=== PATIENT | male | born 1945 | race Caucasian/White ===

== ENCOUNTER 2016-10-30 09:53 | Outpatient (RCR) | payer MEDICARE, OTHER ==
[~2016-10-30 09:53] MED LIST: AMLO5TAB2 PO; ATEN50TA PO; CALC-787 PO; CHLO25TA2 PO; GLYB2.5T4 PO; LISI1TAB10 PO; LISINOPRIL 20 MG; METF-380 PO; MTF500T PO; MULT-963 PO; OMG1KC PO; OXYC-12 PO; PGLT30T PO; SIMV40TA4 PO
== END 2017-01-28 | disposition home or self-care (01) ==
LOC: DSME 09:53
PROVIDERS: ATTEND Internal Medicine
DX: E11.65 Type 2 diabetes mellitus with hyperglycemia (principal)

== ENCOUNTER 2017-07-05 10:44 | Outpatient (CLI) | payer MEDICARE, OTHER ==
[~2017-07-05] VITALS: Ht 195.6 cm; Wt 133.8 kg
== END 2017-07-05 10:47 ==
LOC: PREOP 10:44
PROVIDERS: ATTEND Surgery
DX: Z01.818 Encounter for other preprocedural examination (principal); Z12.11 Encounter for screening for malignant neoplasm of colon; Z86.010 Personal history of colon polyps

== ENCOUNTER 2017-07-06 11:56 | Day surgery (SDC) | payer MEDICARE, OTHER ==
[~2017-07-06] VITALS: Ht 195.6 cm; Wt 133.8 kg
[2017-07-06] MEDS ORDERED: NS IV 500 ML 500 ML IV PRN (12:00)
[2017-07-06] MEDS ORDERED: NS IV 500 ML 500 ML ONE (12:03)
[2017-07-06] MEDS ORDERED: LIDOCAINE JELLY 2% (XYLOCAINE) 5 ML TUBE MM PRN (12:15)
[2017-07-06 12:34] VITALS: BP 144/67
--- NOTE | 2017-07-06 13:03 | Conscious Sedation/ASA ---
Conscious Sedation Pre-Proced Time Reviewed: 12:30 ASA Class: 2 Airway Mallampati Classification: ([place] appropriate class) I. II. III, IV Lungs Heart ASA score ASA 1: a normal healthy patient ASA 2: a patient with a mild systemic disease (mid diabetes, controlled hypertension, obesity ASA 3: a patient with a severe systemic disease that limits activity (angina , COPD, prior Myocardial infarction) ASA 4: a patient with an incapacitating disease that is a constant threat to life (CHF, renal failure) ASA 5: a moribund patient not expected to survive 24 hrs. (ruptured aneurysm) ASA 6: a declared brain patient whose organs are being harvested. For emergent operations, add the letter E after the classification Grade 2 Sedation Plan: Analgesia, Amnesia, Plan communicated to team members, Discussed options with patient/fam, Discussed risks with patient/fam Note The patient is an appropriate candidate to undergo the planned procedure, sedation, and anesthesia. The patient immediately re-assessed prior to indication. DOM GUTIÉRREZ MD Jul 06, 2017 1:03 pm
--- NOTE | 2017-07-06 13:04 | Progress Note-Pre Operative ---
Pre-Operative Progress Note H&P Reviewed The H&P was reviewed, patient examined and no changes noted. Date Seen by Provider: Jul 06, 2017 Time Seen by Provider: 12:30 Date H&P Reviewed: Jul 06, 2017 Time H&P Reviewed: 12:30 Pre-Operative Diagnosis: hx polyps DOM GUTIÉRREZ MD Jul 06, 2017 1:03 pm
[2017-07-06] MEDS ORDERED: MIDAZOLAM 2 MG/2 ML (VERSED) VIAL ONE ×4 (13:11)
[2017-07-06] MEDS ORDERED: LIDOCAINE JELLY 2% (XYLOCAINE) 5 ML TUBE ONE (13:12)
[2017-07-06] MEDS ORDERED: fentaNYL INJECTION 100 MCG/2 ML AMP ONE ×2 (13:12)
[2017-07-06] MEDS ORDERED: ACETAMINOPHEN 325 MG TABLET/CAPLET (TYLENOL) PO PRN (13:15)
[2017-07-06] MEDS ORDERED: ONDANSETRON 4 MG/2 ML (SDV) Z0FRAN IV PRN (13:15)
[2017-07-06] MEDS ORDERED: morphine INJ 10 MG/ML 1ML (SYR OR VIAL) IV PRN (13:15)
[2017-07-06] MEDS ORDERED: HYDROcodone/APAP 5 MG/325 MG (LORTAB) TAB PO PRN (13:15)
[2017-07-06] MEDS: fentaNYL INJECTION 100 MCG/2 ML AMP IVP PRN ×2 (13:26→13:35)
[2017-07-06] MEDS: MIDAZOLAM 2 MG/2 ML (VERSED) VIAL IVP PRN ×3 (13:28→13:40)
--- NOTE | 2017-07-06 13:58 | Progress Note-Post Operative ---
Post-Operative Progess Note Surgeon (s)/Junior Legal Secretary (s) Surgeon DOM GUTIÉRREZ MD Junior Legal Secretary: none Pre-Operative Diagnosis hx polyps Post-Operative Diagnosis mild sigmoid diverticulosis. Procedure & Operative Findings Date of Procedure 07/06/17 Procedure Performed/Findings Colonoscopy. Anesthesia Type CS Estimated Blood Loss Estimated blood loss (mL): minimal Specimens/Packing Specimens Removed none DOM GUTIÉRREZ MD Jul 06, 2017 1:58 pm
--- NOTE | 2017-07-06 13:59 | Discharge Inst-Surgical ---
D/C Lap Instructions-BROCK Follow Up 10 years Activity as tolerated High Fiber Diet 25g or more per day Avoid Alcohol, Caffeine, Spicy [place] and Acid foods. Drink 64 fluid oz or more of fluids per day. Symptoms to Report: Fever over 101 degree F, Nausea/Vomiting If any problems/questions: Contact your physician or go to Emergency Room DOM GUTIÉRREZ MD Jul 06, 2017 1:59 pm
[2017-07-06 14:05] VITALS: BP 114/64
[2017-07-06 14:20] VITALS: BP 141/79
[2017-07-06 14:36] VITALS: BP 141/79
--- NOTE | 2017-07-06 23:43 | OPERATIVE REPORT ---
DATE OF SERVICE: 07/06/2017 ATTENDING PRIMARY CARE PHYSICIAN: Dr. Gibbs. PREOPERATIVE DIAGNOSIS: History of colon polyp. POSTOPERATIVE DIAGNOSIS: Mild sigmoid diverticulosis. PROCEDURE: Colonoscopy. SURGEON: Dr. Gutiérrez. ANESTHESIA: Conscious sedation. ESTIMATED BLOOD LOSS: Minimal. FINDINGS: Mild sigmoid diverticulosis. Remainder of the colon was normal. There were no polyps identified. DISPOSITION: The patient tolerated the procedure well. The patient is a 72-year-old male in need of a followup colonoscopy. He reports that he has had a colonoscopy done before in the past. He does remember having polyps identified. He reports that these were biopsied and found to be benign. He states for the most part he is doing well and does not report any major issues with diarrhea nor constipation as well as no red blood per rectum nor any dark tarry stools. He also does not report any family history of colon cancer. The patient was brought to the endoscopy suite, laid in the left lateral decubitus position. After adequate IV pain and sedating medications and conscious sedation anesthesia, a digital rectal examination was performed. No significant hemorrhoids were identified. Normal sphincter tone was felt and there were no palpable masses. Prostate gland was palpable and appeared normal. The endoscope was then intubated to the anus, then the rectum gently insufflated. The endoscope was then advanced through the valves of Chen and the rectum with no polyps or any neoplasms identified. We then proceeded through the sigmoid colon where mild sigmoid diverticulosis was identified. There were no mucosal inflammatory changes identified to indicate any active diverticulitis. The endoscope was then advanced through the remainder of the descending, transverse, and ascending colon to the cecum. These segments were normal. There were no polyps or any neoplasms identified. The endoscope was then slowly withdrawn while taking a second look and suctioning of residual air with no additional findings. The patient tolerated the procedure well. We will have him continue with medical management with high fiber diet with at least 30 grams of fiber per day as well as at least 64 fluid ounces of water daily to promote soft stools on a daily basis. He does not have a family history of colon cancer and it did does not appear that he has had any significant adenomatous polyps with any villous architecture and from this standpoint, he does not need another colonoscopy for another 10 years or sooner if problems arise. Job ID: [id number] DocumentID: [id number] Dictated Date: 07/06/2017 14:07:25 Rough Planer Tender Date: 07/06/2017 23:43:00 Dictated By: DOM GUTIÉRREZ MD
== END 2017-07-06 14:30 | disposition home or self-care (01) ==
LOC: ENDO 11:56
PROVIDERS: ATTEND Surgery
DX: Z12.11 Encounter for screening for malignant neoplasm of colon (principal); Z86.010 Personal history of colon polyps; K57.90 Diverticulosis of intestine, part unspecified, without perforation or abscess without bleeding; I10 Essential (primary) hypertension; E11.9 Type 2 diabetes mellitus without complications; E78.5 Hyperlipidemia, unspecified; E29.1 Testicular hypofunction; M10.9 Gout, unspecified; F17.220 Nicotine dependence, chewing tobacco, uncomplicated; Z79.82 Long term (current) use of aspirin; Z79.84 Long term (current) use of oral hypoglycemic drugs; Z79.899 Other long term (current) drug therapy

== ENCOUNTER → 2018-08-09 | Outpatient (CLI) | payer MEDICARE, OTHER | LOC: CARD 07:50 | PROVIDERS: ATTEND Internal Medicine Cardiovascular Disease | DX: I49.1 Atrial premature depolarization (principal); E11.9 Type 2 diabetes mellitus without complications; R42 Dizziness and giddiness; I10 Essential (primary) hypertension; E78.2 Mixed hyperlipidemia | CPT/HCPCS: 93225; 93226 ==

== ENCOUNTER → 2018-08-26 | Outpatient (CLI) | payer MEDICARE, OTHER | LOC: CARD 12:36 | PROVIDERS: ATTEND Internal Medicine Cardiovascular Disease | DX: I49.1 Atrial premature depolarization (principal); I10 Essential (primary) hypertension; E78.2 Mixed hyperlipidemia; R42 Dizziness and giddiness; E11.9 Type 2 diabetes mellitus without complications | CPT/HCPCS: 93306 ==

== ENCOUNTER 2018-10-12 19:58 | Outpatient (CLI) | payer MEDICARE, OTHER | END 2018-10-13 06:00 | disposition home or self-care (01) | LOC: SLEEP 19:58 | PROVIDERS: ATTEND Internal Medicine Cardiovascular Disease | DX: G47.33 Obstructive sleep apnea (adult) (pediatric) (principal); I10 Essential (primary) hypertension; I49.9 Cardiac arrhythmia, unspecified | CPT/HCPCS: 95811 ==

== ENCOUNTER → 2019-05-21 | Outpatient (CLI) | payer MEDICARE, OTHER ==
[~2019-05-21] MED LIST changes: +CATHETER FLUSH 10 ML SYR IV PRN
[2019-05-21 09:09] VITALS: BP 149/68
[2019-05-21 09:23] VITALS: BP 207/67
[2019-05-21 09:24] VITALS: BP 171/64
[2019-05-21 09:26] VITALS: BP 163/64
--- NOTE | 2019-05-21 15:42 | STRESS TEST ---
DATE OF SERVICE: 05/21/2019 EXERCISE MYOVIEW STRESS TEST REPORT REFERRING PHYSICIAN: Dr. Gibbs and Brittany Taylor DO Baseline heart rate is 56. Baseline blood pressure 149/68. Baseline EKG is sinus rhythm with no ischemic changes. In summary, the patient was injected with 10.99 mCi of technetium-99 Myoview and the resting images were obtained. Then, the patient started exercising with a baseline heart rate, blood pressure and EKG mentioned above. The patient was able to exercise for a total of 5 minutes 20 seconds on standard Abdon protocol. With peak exercise level, blood pressure was 207/67. During EKG was showing minimal nondiagnostic changes. During recovery, heart rate and blood pressure returned to baseline. EKG returned to baseline. The resting and stress images were reviewed and compared in the short axis, horizontal long axis, and vertical long axis views. Review of the images showed diaphragmatic attenuation with decreased uptake involving the inferior wall and inferoposterior wall with subtle reversibility most probably due to the diaphragmatic attenuation, there is no significant ischemia was noted. SSS 0. TID value 1.01. On the gated images, the left ventricle appeared to be normal size with normal contractility. Calculated ejection fraction 61%. CONCLUSION: 1. The patient was able to exercise for a total of 5 minutes 20 seconds on standard Abdon protocol, achieving 86% of maximum expected heart rate. 2. Hypertensive response to exercise, returned to baseline during recovery with peak blood pressure 207/67. 3. Minimal nondiagnostic EKG changes with exercise, returned to baseline during recovery. 4. Diaphragmatic attenuation with typical male pattern. No significant ischemia or infarction on SPECT images. 5. Normal left ventricular size with normal contractility. Calculated ejection fraction 61%. Job ID: [id number] DocumentID: [id number] Dictated Date: 05/21/2019 15:26:10 Earth Moving Machine Operator Date: 05/21/2019 15:42:02 Dictated By: SANDRA CHEN MD
== END ==
LOC: CARD 07:17
PROVIDERS: ATTEND Physician Assistant
DX: I49.1 Atrial premature depolarization (principal); E11.9 Type 2 diabetes mellitus without complications; I10 Essential (primary) hypertension; E78.2 Mixed hyperlipidemia; Z82.49 Family history of ischemic heart disease and other diseases of the circulatory system
CPT/HCPCS: 78452; 93017

== ENCOUNTER → 2020-04-12 | Outpatient (CLI) | payer MEDICARE, OTHER ==
[~2020-04-12] MED LIST changes: -CATHETER FLUSH 10 ML SYR IV PRN
--- NOTE | 2020-04-12 12:56 | Diagnostic Imaging Report ---
INDICATION: Right hip pain. FINDINGS: Two views of the right hip show no fracture or dislocation. There are small osteophytes at the margins of the articular surfaces. There is some sclerotic change in the inferior aspect of the right sacroiliac joint. IMPRESSION: Chronic right sacroiliitis. Mild degenerative changes of the right hip. No acute abnormalities seen. Dictated by: Dictated on workstation # [id number]
== END ==
LOC: RAD 10:34
PROVIDERS: ATTEND Internal Medicine
DX: M16.11 Unilateral primary osteoarthritis, right hip (principal); M46.1 Sacroiliitis, not elsewhere classified
CPT/HCPCS: 73502

== ENCOUNTER → 2021-02-10 | Outpatient (CLI) | payer MEDICARE, OTHER ==
--- NOTE | 2021-02-10 16:37 | Diagnostic Imaging Report ---
EXAMINATION: Left hip unilateral 2 or 3 views (w/pelvis when done) HISTORY: HIP AND BACK PAIN COMPARISON: None available. FINDINGS: Alignment is normal. No fracture seen. There is mild hip joint osteoarthritis in the left. IMPRESSION: 1. Mild left hip osteoarthritis. Dictated by: Dictated on workstation # [id number]
--- NOTE | 2021-02-10 16:56 | Diagnostic Imaging Report ---
INDICATION: Low back pain AP and lateral views of lumbar spine are obtained. There is grade 1 spondylolisthesis at L4-L5. There is spondylosis deformans with large osteophytes anteriorly throughout the lumbar spine many of which are bridging. The patient has changes of chronic sacroiliitis. There are degenerative changes of the facet joints at L4-L5 and L5-S1. L5-S1 disc spaces narrowed. IMPRESSION: Sacroiliitis, spondylosis deformans. Dictated by: Dictated on workstation # [id number]
== END ==
LOC: RAD 14:07
PROVIDERS: ATTEND Internal Medicine
DX: M16.12 Unilateral primary osteoarthritis, left hip (principal); M47.816 Spondylosis without myelopathy or radiculopathy, lumbar region; M46.1 Sacroiliitis, not elsewhere classified
CPT/HCPCS: 72100; 73502

== ENCOUNTER → 2021-04-27 | Outpatient (CLI) | payer MEDICARE, OTHER | LOC: CARD 13:30 | PROVIDERS: ATTEND Physician Assistant | DX: I11.9 Hypertensive heart disease without heart failure (principal); I35.0 Nonrheumatic aortic (valve) stenosis; I25.10 Atherosclerotic heart disease of native coronary artery without angina pectoris | CPT/HCPCS: 93306 ==

== ENCOUNTER → 2021-12-20 | Outpatient (CLI) | payer MEDICARE, OTHER ==
--- NOTE | 2021-12-20 11:29 | Diagnostic Imaging Report ---
INDICATION: Right elbow pain. COMPARISON: None FINDINGS: 3 radiographic views of the right elbow were obtained. There is no acute fracture or dislocation. Moderate osteoarthritic changes are noted. There are probable multiple calcified intra-articular loose bodies. Otherwise, joint spaces are maintained. No unexpected radiopaque foreign bodies are seen. Partially calcified soft tissue prominence is noted over the posterior margins of the olecranon. IMPRESSION: 1. No acute fracture or dislocation of the right elbow. 2. Moderate osteoarthritic changes and probable multiple intra-articular loose bodies. 3. 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 Dictated by: Dictated on workstation # [id number]
== END ==
LOC: ORTHO 10:01
PROVIDERS: ATTEND Orthopaedic Surgery
DX: M19.021 Primary osteoarthritis, right elbow (principal)
CPT/HCPCS: 73080; G0463; 99203

== ENCOUNTER → 2022-03-08 | Outpatient (CLI) | payer OTHER ==
[~2022-03-08] MED LIST changes: +ASPI-999 PO; +ATOR40TA70 PO; +FAMO20TA3 PO; +HYDR25TA4 PO; +INDO25CA99 PO; +INSU100I14 SQ; +INSU100I29 SQ; +LIRA0.6P3 SQ; +METO50TA15 PO; +OXC5T PO; +TEST200V21 IM
== END ==
LOC: ORTHO 02:45
PROVIDERS: ATTEND Orthopaedic Surgery
DX: Z47.89 Encounter for other orthopedic aftercare (principal); Z98.890 Other specified postprocedural states
CPT/HCPCS: 99213

== ENCOUNTER 2022-03-13 05:30 | Outpatient (CLI) | payer MEDICARE, OTHER ==
[~2022-03-13] VITALS: Ht 195.6 cm; Wt 125.8 kg
[~2022-03-13 05:30] MED LIST changes: -ASPI-999 PO; -ATOR40TA70 PO; -FAMO20TA3 PO; -HYDR25TA4 PO; -INDO25CA99 PO; -INSU100I14 SQ; -INSU100I29 SQ; -LIRA0.6P3 SQ; -METO50TA15 PO; -OXC5T PO; -TEST200V21 IM
[2022-03-15] MEDS ORDERED: METO50TA15 PO (15:26)
[2022-03-15] MEDS ORDERED: LIRA0.6P3 SQ (15:26)
[2022-03-15] MEDS ORDERED: INSU100I29 SQ ×2 (15:26)
[2022-03-15] MEDS ORDERED: TEST200V21 IM (15:26)
[2022-03-15] MEDS ORDERED: FAMO20TA3 PO (15:26)
[2022-03-15] MEDS ORDERED: ATOR40TA70 PO (15:26)
[2022-03-15] MEDS ORDERED: HYDR25TA4 PO (15:26)
[2022-03-15] MEDS ORDERED: INDO25CA99 PO (15:26)
[2022-03-15] MEDS ORDERED: INSU100I14 SQ (15:26)
[2022-03-15] MEDS ORDERED: ASPI-999 PO (15:26)
== END 2022-03-15 15:49 | disposition home or self-care (01) ==
LOC: PREOP 05:30
PROVIDERS: ATTEND Orthopaedic Surgery
DX: Z01.818 Encounter for other preprocedural examination (principal)

== ENCOUNTER 2022-03-20 06:03 | Day surgery (SDC) | payer MEDICARE, OTHER ==
[~2022-03-20] VITALS: Ht 195 cm; Wt 125.8 kg
[~2022-03-20 06:03] MED LIST changes: +ASPI-999 PO; +ATOR40TA70 PO; +FAMO20TA3 PO; +HYDR25TA4 PO; +INDO25CA99 PO; +INSU100I14 SQ; +INSU100I29 SQ; +LIRA0.6P3 SQ; +METO50TA15 PO; +TEST200V21 IM
[2022-03-20 06:40] VITALS: BP 155/76
[2022-03-20] MEDS ORDERED: LACTATED RINGERS 1,000 ML IV PRN (06:45)
[2022-03-20] MEDS ORDERED: MIDAZOLAM 2 MG/2 ML (VERSED) VIAL ONE (06:49)
[2022-03-20] MEDS ORDERED: fentaNYL INJ 100 MCG/2 ML AMP ONE (06:49)
[2022-03-20] MEDS ORDERED: PROPOFOL INJECTION 50 ML IV ONE ×2 (06:49→07:50)
[2022-03-20] MEDS ORDERED: ceFAZolin INJECTION 3,000 MG in NS (IVPB) 100 ML IV NR (07:00)
--- NOTE | 2022-03-20 07:12 | Progress Note-Pre Operative ---
Pre-Operative Progress Note H&P Reviewed The H&P was reviewed, patient examined and no changes noted. Date Seen by Provider: Mar 20, 2022 Time Seen by Provider: 07:05 Date H&P Reviewed: Mar 20, 2022 Time H&P Reviewed: 07:05 Pre-Operative Diagnosis: Right Olecranon Bursitis FARTUN VALDEZ MD Mar 20, 2022 07:12
[2022-03-20] MEDS ORDERED: BUPIVACAINE 0.5% 30 ML (SENSORCAINE) VIAL ONE (07:22)
[2022-03-20] MEDS ORDERED: LIDOCAINE/EPI 2% 1:200,00 (XYLOCAINE) 20 ML VIAL ONE (07:22)
[2022-03-20 08:12] VITALS: BP 122/67
[2022-03-20] MEDS ORDERED: fentaNYL INJ 100 MCG/2 ML AMP IVP ONE (08:15)
[2022-03-20] MEDS ORDERED: ONDANSETRON 4 MG/2 ML (SDV) Z0FRAN IVP PRN (08:15)
--- NOTE | 2022-03-20 08:16 | Anesthesia-General Post-Op ---
MAC Patient Condition Mental Status/LOC: Same as Preop Cardiovascular: Satisfactory Nausea/Vomiting: Absent Respiratory: Satisfactory Pain: Controlled Complications: Absent Post Op Complications Complications None Follow Up Care/Instructions Patient Instructions None needed. Anesthesiology Discharge Order Discharge Order Patient is doing well, no complaints, stable vital signs, no apparent adverse anesthesia problems. No complications reported per nursing. JOHN LEWIS CRNA Mar 20, 2022 08:16
[2022-03-20] MEDS ORDERED: OXC5T PO (08:18)
[2022-03-20 08:19] VITALS: BP 125/65
--- NOTE | 2022-03-20 08:24 | Operative Report - Ortho ---
Operative Report Surgeon (s)/Seat Mender (s) Surgeon FARTUN VALDEZ MD Seat Mender n/a Pre-Operative Diagnosis Right Olecranon Bursitis Post-Operative Diagnosis same Operative Report Date of Procedure: Mar 20, 2022 Name of Procedure Performed: Right Olecranon Bursectomy Description & Findings After obtaining informed consent and marking the patient in the preoperative holding area, the patient did receive intravenous antibiotics and was taken to [facility] operating room. Sedation was administered. Surgical timeout was taken. The right upper extremity was prepped and draped in the usual sterile fashion. Area of incision was injected with local anesthetic with epinephrine. Incision was made and circumferential dissection was carried out around the nodular portion of the bursa. Multiple chalk-like deposits were encountered throughout the bursa. A combination of scissors and scalpel were used to excise the nodular portion of the bursa. This portion was sent for pathology. Ronge[place] was used to debride and remove further bursal tissue with deposits in it. The wound was irrigated with normal saline. Wound was repaired with 3-0 vicryl subcutaneously and 4-0 nylon for the skin. Wound was dressed with xeroform, 4x4s, Kerlix, and Coban. Patient tolerated the procedure well and was stable to the recovery room. Anesthesia Type Sedation plus local Estimated Blood Loss minimal Specimen(s) collected/removed Alexandroy topduglas sent for path FARTUN VALDEZ MD Mar 20, 2022 08:24
[2022-03-20 08:31] VITALS: BP 133/75
[2022-03-20 08:40] VITALS: BP_SYST 135; BP_SYST 136; BP_DIAS 67; BP_DIAS 78
[2022-03-20 09:10] VITALS: BP 133/69
== END 2022-03-20 09:28 | disposition home or self-care (01) ==
LOC: SDC 06:03
PROVIDERS: ATTEND Orthopaedic Surgery
DX: M70.21 Olecranon bursitis, right elbow (principal); E11.9 Type 2 diabetes mellitus without complications; E66.9 Obesity, unspecified; Z68.33 Body mass index [BMI] 33.0-33.9, adult; G47.33 Obstructive sleep apnea (adult) (pediatric); K21.9 Gastro-esophageal reflux disease without esophagitis; Z79.82 Long term (current) use of aspirin; Z79.899 Other long term (current) drug therapy; Z79.84 Long term (current) use of oral hypoglycemic drugs; Z79.4 Long term (current) use of insulin; Z87.891 Personal history of nicotine dependence
CPT/HCPCS: 82947; 87081

== ENCOUNTER → 2022-08-18 | Outpatient (CLI) | payer MEDICARE, OTHER ==
[~2022-08-18] MED LIST changes: +OXC5T PO
== END ==
LOC: CARD 14:08
PROVIDERS: ATTEND Internal Medicine Cardiovascular Disease
DX: I11.9 Hypertensive heart disease without heart failure (principal); I35.1 Nonrheumatic aortic (valve) insufficiency
CPT/HCPCS: 93306

== ENCOUNTER → 2022-09-13 | Outpatient (CLI) | payer MEDICARE, OTHER ==
[~2022-09-13] MED LIST changes: +CATHETER FLUSH 10 ML SYR IVP PRN
[2022-09-13 09:08] VITALS: BP 138/68
--- NOTE | 2022-09-13 16:06 | Cardiology Stress Test Report ---
Stress Test Report Date of Procedure/Referring: Date of Procedure: Sep 13, 2022 PCP Brittany Taylor DO Admitting Physician Admitting Physician: Attending Physician: Vanesa Nielson Baseline Heart Rate: 64 Baseline Blood Pressure: Blood Pressure Systolic: 138 Blood Pressure Diastolic: 68 Vital Signs Date Time Temp Pulse Resp B/P (MAP) Pulse Ox O2 Delivery O2 Flow Rate FiO2 09/13/22 09:08 64 16 138/68 (91) 95 Room Air Baseline Vital Signs Vital Signs Date Time Temp Pulse Resp B/P (MAP) Pulse Ox O2 Delivery O2 Flow Rate FiO2 09/13/22 09:08 64 16 138/68 (91) 95 Room Air Baseline EKG: Baseline EKG: NSR Summary: After explaining the procedure and details to the patient, he signed the consent and was brought to the stress nuclear laboratory. Patient exercised on standard Abdon protocol, EKG, heart rate and blood pressure were monitored continuously, resting and stress doses of radio tracer were injected, imaging was acquired and reviewed in the short axis, horizontal long axis and vertical long axis views Patient was able to exercise for a total of 5.30 minutes on Abdon protocol, METs 6.6 Maximum heart rate 121 Maximum blood pressure 204/59 Stress EKG, Minimal nondiagnostic changes Recovery EKG, Return to baseline TID: 1.04 SSS: 0 SDS: 0 EF: 65 Conclusion: 1. Fair exercise tolerance for a total of 5 minutes and 30 seconds on standard Abdon protocol, 6.6 METS achieving 85% of maximum expected heart rate 2. Baseline right bundle branch block with nondiagnostic EKG changes with exercise return to baseline during recovery 3. No significant ischemia or infarction noted on SPECT images 4. Normal left ventricular size, ejection fraction 65% Copy Copies To 1: BRITTANY TAYLOR BASHAR J MD Sep 13, 2022 16:06
== END ==
LOC: CARD 07:30
PROVIDERS: ATTEND Physician Assistant
DX: I10 Essential (primary) hypertension (principal)
CPT/HCPCS: 78452; 93017; A9502

== ENCOUNTER 2022-11-13 05:57 | Outpatient (CLI) | payer MEDICARE, OTHER ==
[~2022-11-13] VITALS: Ht 195.6 cm; Wt 123.6 kg
[~2022-11-13 05:57] MED LIST changes: -CATHETER FLUSH 10 ML SYR IVP PRN
[2022-11-13] MEDS ORDERED: TRAM50TA3 PO (16:07)
[2022-11-13] MEDS ORDERED: TIRZ5PEN SQ (16:07)
[2022-11-13] MEDS ORDERED: ACHD5005 PO (16:07)
[2022-11-13] MEDS ORDERED: ATOR10TA66 PO (16:07)
== END 2022-11-14 08:28 ==
LOC: PREOP 05:57
PROVIDERS: ATTEND Specialist
DX: Z01.818 Encounter for other preprocedural examination (principal)

== ENCOUNTER 2022-11-17 09:20 | Day surgery (SDC) | payer MEDICARE, OTHER ==
[~2022-11-17] VITALS: Ht 195.6 cm; Wt 123.6 kg
[~2022-11-17 09:20] MED LIST changes: +ACHD5005 PO; +ATOR10TA66 PO; +TIRZ5PEN SQ; +TRAM50TA3 PO
[2022-11-17] MEDS ORDERED: POVIDONE (BETADINE) OPHTH SOLN 5% 30 ML OP ONE (09:45)
[2022-11-17] MEDS ORDERED: MOXIFLOXACIN OPHTH SOLN 5 MG/ML 0.3 ML SYRINGE OP ONE (09:45)
[2022-11-17] MEDS ORDERED: TIMOLOL 0.5% (CATARACTS) 0.3 ML BTL OU PRN (09:45)
[2022-11-17] MEDS: TETRACAINE 0.5% OPHTH SOLN 4 ML BTL (SINGLE DOSE ONLY) OU PRN ×4 (10:02→10:19)
[2022-11-17] MEDS: TROPICAMIDE 1% OPH SOLN (MYDRIACYL) 15 ML BTL OP SCH ×3 (10:08→10:19)
[2022-11-17] MEDS: PHENYLEPHRINE 10% OPHTH (NEO-SYN) 5 ML BTL OU SCH ×3 (10:08→10:19)
[2022-11-17 10:20] VITALS: BP 124/59
[2022-11-17] MEDS ORDERED: MIDAZOLAM 2 MG/2 ML (VERSED) VIAL ONE (10:48)
--- NOTE | 2022-11-17 10:51 | Ophthalmologist Pre-Op Note ---
Pre-Operative Progress Note H&P Reviewed The H&P was reviewed, patient examined and no changes noted. Date H&P Reviewed: Nov 17, 2022 Time H&P Reviewed: 10:51 Pre-Op Dx Cataract, Right Eye FANI CORDOBA MD Nov 17, 2022 10:51
--- NOTE | 2022-11-17 11:18 | Ophthalmology Operative Report ---
Cataract removal/placement IOL PREOPERATIVE DIAGNOSIS: Cataract Right Eye POSTOPERATIVE DIAGNOSIS: Cataract Right Eye PROCEDURE: Cataract removal and placement of posterior chamber implant, right eye SURGEON: Cash Cordoba ANESTHESIA: Topical with sedation COMPLICATIONS: None ESTIMATED BLOOD LOSS: Minimal DESCRIPTION OF PROCEDURE: After proper informed consent was obtained, the patient, a 77 male, was taken to the Operating Room and the right eye was anesthetized with tetracaine. The right eye was then prepped and draped in the usual manner. A wire lid speculum was placed. A paracentesis was made at the left hand position. Preservative free lidocaine was injected into the anterior chamber followed by viscoelastic. A clear corneal incision was made in the temporal position. A capsulorrhexis was preformed and the central nuclear and cortical material were removed. The posterior capsule was polished and Arsen 21.0 AU00T0 IOL was placed into the capsular bag. The residual viscoelastic was aspirated and balanced saline solution was injected into the anterior chamber. Moxifloxacin was injected into the anterior chamber. The wound was checked and found to be water tight. The patient tolerated the procedure well without complications. CASH CORDOBA MD Nov 17, 2022 11:18
[2022-11-17 11:22] VITALS: BP 151/68
--- NOTE | 2022-11-17 12:07 | Anesthesia-General Post-Op ---
MAC Patient Condition Mental Status/LOC: Same as Preop Cardiovascular: Satisfactory Nausea/Vomiting: Absent Respiratory: Satisfactory Pain: Controlled Complications: Absent Post Op Complications Complications None Follow Up Care/Instructions Patient Instructions None needed. Anesthesiology Discharge Order Discharge Order Patient is doing well, no complaints, stable vital signs, no apparent adverse anesthesia problems. No complications reported per nursing. BRENDEN VALENTIN CRNA Nov 17, 2022 12:07
[2022-11-17] MEDS ORDERED: acetaZOLAMIDE ER 500 MG CAP (DIAMOX SEQUELS) PO ONE (12:15)
== END 2022-11-17 11:24 | disposition home or self-care (01) ==
LOC: SDC 09:20
PROVIDERS: ATTEND Specialist
DX: E11.36 Type 2 diabetes mellitus with diabetic cataract (principal); H25.9 Unspecified age-related cataract; Z87.891 Personal history of nicotine dependence; Z79.4 Long term (current) use of insulin; Z79.84 Long term (current) use of oral hypoglycemic drugs
CPT/HCPCS: 66984; V2632

== ENCOUNTER 2022-11-19 11:32 | Emergency (ER) | payer MEDICARE, OTHER ==
[~2022-11-19] VITALS: Ht 195.5 cm; Wt 121.0 kg
[2022-11-19 11:45] VITALS: BP 138/74
--- NOTE | 2022-11-19 12:11 | ED GU-Male ---
General Chief Complaint: - Reproductive Stated Complaint: BLOOD IN URINE Nursing Triage Note: AMB TO ROOM 8 WITH A C/O BLOOD IN HIS URINE SINCE LAST EVENING. STATES IS WORSE THIS MORNING, DENIES PAIN OR DIFFICULTY PASSING URINE. DENIES ALL OTHER SYMPTOMS FOR ALL OTHER BODY SYSTEMS EXCEPT VISION FOR WHICH HE HAD CATERACT SURGERY ON SUNDAY. Source: patient Exam Limitations: no limitations (ILSA ZARAGOZA) History of Present Illness Date Seen by Provider: Nov 19, 2022 Time Seen by Provider: 12:09 Initial Comments Patient is a 77-year-old male who presents the ED for blood in his urine. This started yesterday evening. Noted bright red blood in his urine. Denies passing clots. Patient states he had cataract surgery this past Sunday. Was placed on a medication to take after his surgery. Patient cannot recall the medication. States he has intermittent abdominal pain but nothing acute today. No current pain, vomiting, fever, chills, bodyaches, headache, dizziness or history of similar symptoms. Denies history of bladder or prostate cancer. No history of kidney stones. Patient denies blood thinner. Patient reports frequent urination without dysuria, decreased urine output (ILSA ZARAGOZA) Allergies and Home Medications Allergies Coded Allergies: No Known Drug Allergies (Unverified , 03/15/22) Patient Home Medication List Home Medication List Reviewed: Yes (ILSA ZARAGOZA) Aspirin (Aspirin) 81 Mg Tab.chew, 81 MG PO DAILY, (Reported) Entered as Reported by: RUBEN MARINO on 03/15/22 1526 Atorvastatin Calcium (Atorvastatin Calcium) 10 Mg Tablet, 10 MG PO HS, (Reported) Entered as Reported by: RUBEN MARINO on 11/13/22 1607 Calcium Citrate/Vitamin D3 (Calcium Citrate - Vit D3 Tab) 1 Each Tablet, 1 EACH PO, (Reported) Entered as Reported by: PO DE LA PAZ on 08/07/12 151 Chlorthalidone (Chlorthalidone) 25 Mg Tablet, 25 MG PO DAILY, (Reported) Entered as Reported by: PO DE LA PAZ on 08/07/12 1511 Famotidine (Acid Vegetable Farm Manager (FAMOTIDINE)) 20 Mg Tablet, 20 MG PO HS, (Reported) Entered as Reported by: RUBEN MARINO on 03/15/22 1526 Hydrocodone/Acetaminophen (Hydrocodone-Acetamin 5-325 mg) 5 Mg-325 Mg Tablet, 1 TAB PO UD PRN for PAIN-MODERATE (5-7), (Reported) Entered as Reported by: RUBEN MARINO on 11/13/22 160 Indomethacin (Indomethacin) 25 Mg Capsule, 25 MG PO UD, (Reported) Entered as Reported by: RUBEN MARINO on 03/15/22 152 Insulin Aspart (Novolog Flexpen) 100 Unit/Ml (3 Ml) Solution, 5 UNITS SQ AC, (Reported) Entered as Reported by: RUBEN MARINO on 03/15/22 152 Insulin Detemir (Levemir Flextouch) 100 Unit/Ml (3 Ml) Insuln.pen, 18 UNIT SQ BID, (Reported) Entered as Reported by: RUBEN MARINO on 03/15/22 152 Metformin Hcl (Glucophage) 500 Mg Tab, 1,000 MG PO BID, (Reported) Entered as Reported by: FELA QUINONEZ on 07/27/11 165 Metoprolol Tartrate (Metoprolol Tartrate) 50 Mg Tablet, 50 MG PO BID, (Reported) Entered as Reported by: RUBEN MARINO on 03/15/22 152 Multivitamin (Multi-Vitamin Daily) 1 Each Tablet, 1 EACH PO DAILY, (Reported) Entered as Reported by: PO DE LA PAZ on 08/07/12 151 [place] 3 Polyunsat Fatty Acids (Fish Oil) 1,000 Mg Cap, 1,000 MG PO BID, (Reported) Entered as Reported by: PO DE LA PAZ on 08/07/12 151 Testosterone Cypionate (Testosterone Cypionate) 200 Mg/Ml Vial, 200 MG IM, (Reported) Entered as Reported by: RUBEN MARINO on 03/15/22 152 Tirzepatide (Mounjaro) 5 Mg/0.5 Ml Pen.injctr, 5 MG SQ WEEK, (Reported) Entered as Reported by: RUBEN MARINO on 11/13/22 160 Tramadol HCl (Tramadol HCl) 50 Mg Tablet, 50 MG PO UD, (Reported) Entered as Reported by: RUBEN MARINO on 11/13/22 160 [Lisinopril 20 Mg] , 20 MG DAILY, (Reported) Entered as Reported by: FELA QUINONEZ on 07/30/11 1255 Discontinued Medications Atorvastatin Calcium (Atorvastatin Calcium) 40 Mg Tablet, 40 MG PO UD, (Reported) Discontinued Reason: Prescription changed Entered as Reported by: RUBEN Pallavi JAMILA on 03/15/22 1526 Glyburide (Glyburide) 2.5 Mg Tablet, 2 EACH PO DAILY, (Reported) Discontinued Reason: No Longer Taking Entered as Reported by: ELAINE MARIN on 07/17/11 1301 Hydrochlorothiazide (Hydrochlorothiazide) 25 Mg Tablet, 25 MG PO UD, (Reported) Discontinued Reason: No Longer Taking Entered as Reported by: RUBEN MARINO on 03/15/22 1526 Insulin Detemir (Levemir Flextouch) 100 Unit/Ml (3 Ml) Insuln.pen, 15 UNIT SQ D AILY, (Reported) Discontinued Reason: No Longer Taking Entered as Reported by: RUBEN MARINO on 03/15/22 1526 Liraglutide (Victoza 3-Liang) 0.6 Mg/0.1 Ml (18 Mg/3 Ml) Pen.injctr, 1.2 MG SQ DAILY, (Reported) Discontinued Reason: No Longer Taking Entered as Reported by: RUBEN MARINO on 03/15/22 1526 Oxycodone Hcl (Oxyir Tablet) 5 Mg Tab, 5 MG PO Q6H PRN for PAIN-SEVERE (8-10) Discontinued Reason: No Longer Taking Prescribed by: FARTUN VALDEZ MD on 03/20/22 0819 Pioglitazone Hcl (Actos) 30 Mg Tab, 15 MG PO DAILY, (Reported) Discontinued Reason: No Longer Taking Entered as Reported by: ELAINE MARIN on 07/17/11 1301 Simvastatin (Simvastatin) 40 Mg Tablet, 40 MG PO DAILY, (Reported) Discontinued Reason: No Longer Taking Entered as Reported by: ELAINE MARIN on 07/17/11 1301 Review of Systems Review of Systems Constitutional: No chills, No diaphoresis EENTM: No ear pain, No blurred vision, No double vision Respiratory: No cough, No dyspnea on exertion Cardiovascular: No chest pain Gastrointestinal: abdominal pain; No diarrhea, No nausea Genitourinary: denies burning, denies discharge Musculoskeletal: No back pain, No joint pain Skin: No change in color, No change in hair/nails (ILSA ZARAGOZA) All Other Systemes Reviewed Negative Unless Noted: Yes (ILSA ZARAGOZA) Past Vtojzya-Udoixw-Qpwjvw Hx Patient Social History Tobacco Use?: No Use of E-Cig and/or Vaping dev: No Substance use?: No Alcohol Use?: No (ILSA ZARAGOZA) Immunizations Up To Date Influenza Vaccine Up-to-Date: Yes; Up-to-Date First/Initial COVID19 Vaccinat: 10/28/20 Second COVID19 Vaccination [place]: 11/25/20 Third COVID19 Vaccination Date: 07/29/21 (ILSA ZARAGOZA) Seasonal Allergies Seasonal Allergies: Yes (ILSA ZARAGOZA) Past Medical History Surgeries: Yes (BILAT KNEE REPLACEMENT, RIGHT HIP REPLACMENT) Appendectomy, Vasectomy Respiratory: Yes Sleep Apnea Currently Using CPAP: Yes Currently Using BIPAP: No Cardiac: Yes Heart Murmur, High Cholesterol, Hypertension Neurological: No Reproductive Disorders: No Sexually Transmitted Disease: No HIV/AIDS: No Genitourinary: No Gastrointestinal: Yes Gastroesophageal Reflux, Polyps Musculoskeletal: Yes Arthritis, Gout Endocrine: Yes Diabetes, Insulin dep HEENT: No Loss of Vision: Bilateral Hearing Impairment: Denies Cancer: No Psychosocial: No Integumentary: No Blood Disorders: No Adverse Reaction/Blood Tranf: No (ILSA ZARAGOZA) Physical Exam Vital Signs Vital Signs - First Documented 11/19/22 11:45 Temp 36.8 Pulse 66 Resp 16 B/P (MAP) 138/74 (95) Pulse Ox 97 O2 Delivery Room Air (NILDA PALENCIA MD) Vital Signs Capillary Refill : Less Than 3 Seconds (ILSA ZARAGOZA) Height, Weight, BMI Height: 6'5.00" Weight: 295lbs. 0.0oz. 133.436236dt; 31.00 BMI Method: General Appearance: WD/WN, no apparent distress HEENT: PERRL/EOMI, normal ENT inspection, TMs normal, pharynx normal Neck: non-tender, full range of motion, supple, normal inspection Cardiovascular: regular rate, rhythm, no edema, no gallop, no JVD Respiratory: chest non-tender, lungs clear, normal breath sounds, no respiratory distress, no accessory muscle use Gastrointestinal: normal bowel sounds, non tender, soft, no organomegaly Back: normal inspection, no CVA tenderness, no vertebral tenderness Extremities: normal range of motion, non-tender, normal inspection, no pedal edema Neurologic/Psychiatric: stem dryer maintainer II-XII nml as tested, no motor/sensory deficits, alert, normal mood/affect Skin: normal color, warm/dry (ILSA ZARAGOZA) Progress/Results/Core Measures Suspected Sepsis SIRS Temperature: Pulse: 66 Respiratory Rate: 16 Laboratory Tests 11/19/22 12:18: White Blood Count 8.7 Blood Pressure 138 /74 Mean: 95 Laboratory Tests 11/19/22 12:18: Creatinine 1.34H, Platelet Count 166, Total Bilirubin 0.6 (ILSA ZARAGOZA) Results/Orders Lab Results Laboratory Tests Test 11/19/22 11:50 11/19/22 12:18 Range/Units Urine Color RED H Urine Clarity CLEAR Urine pH 7.0 5-9 Urine Specific [place] 1.020 1.016-1.022 Urine Protein 2+ H NEGATIVE Urine Glucose (UA) TRACE H NEGATIVE Urine Ketones NEGATIVE NEGATIVE Urine Nitrite NEGATIVE NEGATIVE Urine Bilirubin NEGATIVE NEGATIVE Urine Urobilinogen 0.2 < = 1.0 MG/DL Urine Leukocyte Esterase NEGATIVE NEGATIVE Urine RBC (Auto) 3+ H NEGATIVE Urine RBC TNTC H /HPF Urine WBC NONE /HPF Urine Squamous Epithelial Cells NONE /HPF Urine Crystals NONE /LPF Urine Bacteria NEGATIVE /HPF Urine Casts NONE /LPF Urine Mucus NEGATIVE /LPF Urine Culture Indicated NO White Blood Count 8.7 4.3-11.0 10^3/uL Red Blood Count 5.13 4.30-5.52 10^6/uL Hemoglobin 15.0 13.3-17.7 g/dL Hematocrit 44 40-54 % Mean Corpuscular Volume 86 80-99 fL Mean Corpuscular Hemoglobin 29 25-34 pg Mean Corpuscular Hemoglobin Concent 34 32-36 g/dL Red Cell Distribution Width 14.4 10.0-14.5 % Platelet Count 166 130-400 10^3/uL Mean Platelet Volume 9.3 9.0-12.2 fL Immature Granulocyte % (Auto) 1 % Neutrophils (%) (Auto) 64 42-75 % Lymphocytes (%) (Auto) 24 12-44 % Monocytes (%) (Auto) 8 0-12 % Eosinophils (%) (Auto) 3 0-10 % Basophils (%) (Auto) 1 0-10 % Neutrophils # (Auto) 5.6 1.8-7.8 10^3/uL Lymphocytes # (Auto) 2.1 1.0-4.0 10^3/uL Monocytes # (Auto) 0.7 0.0-1.0 10^3/uL Eosinophils # (Auto) 0.2 0.0-0.3 10^3/uL Basophils # (Auto) 0.1 0.0-0.1 10^3/uL Immature Granulocyte # (Auto) 0.0 0.0-0.1 10^3/uL Sodium Level 136 135-145 MMOL/L Potassium Level 4.2 3.6-5.0 MMOL/L Chloride Level 105 98-107 MMOL/L Carbon Dioxide Level 16 L 21-32 MMOL/L Anion Gap 15 H 5-14 MMOL/L Blood Urea Nitrogen 20 H 7-18 MG/DL Creatinine 1.34 H 0.60-1.30 MG/DL Estimat Glomerular Filtration Rate 54 BUN/Creatinine Ratio 15 Glucose Level 255 H 70-105 MG/DL Calcium Level 9.9 8.5-10.1 MG/DL Corrected Calcium 9.8 8.5-10.1 MG/DL Total Bilirubin 0.6 0.1-1.0 MG/DL Aspartate Amino Transf (AST/SGOT) 16 5-34 U/L Alanine Aminotransferase (ALT/SGPT) 20 0-55 U/L Alkaline Phosphatase 59 40-136 U/L Total Protein 7.0 6.4-8.2 GM/DL Albumin 4.1 3.2-4.5 GM/DL (NILDA PALENCIA MD) Vital Signs/I&O 11/19/22 11:45 Temp 36.8 Pulse 66 Resp 16 B/P (MAP) 138/74 (95) Pulse Ox 97 O2 Delivery Room Air (NILDA PALENCIA MD) Vital Signs/I&O Capillary Refill : Less Than 3 Seconds (ILSA ZARAGOZA) Blood Pressure Mean: 95 Departure Communication (PCP) Patient with painless hematuria. He states he has had some lower abdominal discomfort prior but none today. Currently asymptomatic. Lab work showed normal hemoglobin and white blood count. Creatinine 1.34. GFR 54. BUN of 20. No recent comparison. Patient reports some increased urination but denies weakened stream, decreased urine output. Urinalysis was negative for infection but did note hematuria as, glucose and protein suggesting kidney disease. He is diabetic. CT abdomen and pelvis without contrast shows nonobstructing 3 mm stone left kidney. Patient is currently pain-free. No evidence of obstructing stone. Patient will be discharged with urology follow-up. Did discuss patient with Dr. Lozano urologist at [facility]. Recommends follow-up in the office this week for further evaluation of the hematuria. Provided number and discharge instructions. Continue with hydration. Return precaution were discussed with patient (ILSA ZARAGOZA) Impression Primary Impression: Hematuria Additional Impression: Nephrolithiasis Disposition: HOME, SELF-CARE Condition: Stable Departure-Patient Inst. Decision time for Depature: 14:29 (ILSA ZARAGOZA) Referrals: CLIVE MUÑOZ DO (PCP/Family) Primary Care Physician Patient Instructions: Kidney Stone, Adult ED Add. Discharge Instructions: Recommend continue staying hydrated. Recommend following up with Dr. Dante reed urologist at [facility]. Schedule appointment tomorrow at [phone] If worsening hematuria, passing of large clots or pain to return back to ED. All discharge instructions reviewed with patient and/or family. Voiced understanding. ATTENDING PHYSICIAN NOTE: I was physically present as attending physician in the emergency department during the care of this patient, but I was not directly involved in the decision making or delivery of care for this patient. (NILDA PALENCIA MD) ILSA ZARAGOZA Nov 19, 2022 12:11 NILDA PALENCIA MD Nov 19, 2022 20:50
[2022-11-19 12:13] LABS: BILIRUBIN,URINE NEGATIVE (NEGATIVE); CLARITY,URINE CLEAR; COLOR,URINE RED; GLUCOSE, URINE (UA) TRACE (NEGATIVE); KETONES,URINE NEGATIVE (NEGATIVE); LEUKOCYTE ESTERASE ,URINE NEGATIVE (NEGATIVE); NITRITE,URINE NEGATIVE (NEGATIVE); PROTEIN,URINE 2+ (NEGATIVE)
[2022-11-19 12:21] LABS: BACTERIA,URINE NEGATIVE /HPF; RBC,URINE TNTC /HPF
[2022-11-19 12:28] LABS: BASOPHILS # (AUTO) 0.1 10^3/uL (0.0-0.1); BASOPHILS % (AUTO) 1 % (0-10); EOSINOPHILS # (AUTO) 0.2 10^3/uL (0.0-0.3); EOSINOPHILS % (AUTO) 3 % (0-10); HEMATOCRIT 44 % (40-54); LYMPHOCYTES # (AUTO) 2.1 10^3/uL (1.0-4.0); LYMPHOCYTES % (AUTO) 24 % (12-44); MEAN CORPUSCULAR HEMOGLOBIN 29 pg (25-34); MEAN CORPUSCULAR HGB CONC 34 g/dL (32-36); MEAN CORPUSCULAR VOLUME 86 fL (80-99); MEAN PLATELET VOLUME 9.3 fL (9.0-12.2); MONOCYTES # (AUTO) 0.7 10^3/uL (0.0-1.0); MONOCYTES % (AUTO) 8 % (0-12); NEUTROPHILS # (AUTO) 5.6 10^3/uL (1.8-7.8); NEUTROPHILS % (AUTO) 64 % (42-75); PLATELET COUNT 166 10^3/uL (130-400); WHITE BLOOD COUNT 8.7 10^3/uL (4.3-11.0)
[2022-11-19 12:37] LABS: ALBUMIN 4.1 GM/DL (3.2-4.5); POTASSIUM 4.2 MMOL/L (3.6-5.0)
[2022-11-19 12:38] LABS: CALCIUM 9.9 MG/DL (8.5-10.1)
[2022-11-19 12:41] LABS: BILIRUBIN,TOTAL 0.6 MG/DL (0.1-1.0)
[2022-11-19 12:43] LABS: CREATININE SERUM 1.34 MG/DL (0.60-1.30)
--- NOTE | 2022-11-19 14:15 | Diagnostic Imaging Report ---
CT ABDOMEN/PELVIS WO TECHNIQUE: Unenhanced CT imaging of the abdomen and pelvis was performed. 2-D reformats are created and submitted for interpretation. Automatic exposure controls were utilized to optimize patient dose. INDICATION: Hematuria COMPARISON: None available. FINDINGS: Lower chest: The lung bases are clear. No pericardial or pleural effusion. Peritoneum: No free intraperitoneal air or fluid. Liver and biliary system: Unenhanced liver is normal. The gallbladder is normal. No biliary duct dilation. Spleen and Pancreas: Spleen is normal. Unenhanced pancreas is grossly normal. Adrenals: Normal. tract: 3 mm nonobstructing stone in the lower pole of the left kidney. No ureteral stones or obstructive uropathy. Urinary bladder is moderately distended. Prostate is not enlarged. GI tract: Stomach is filled with fluid and food debris. No bowel obstruction. No pericolonic inflammatory changes. Appendectomy. Vasculature and Lymph nodes: Normal caliber abdominal aorta has moderate calcifications. No abdominal or pelvic lymphadenopathy. Musculoskeletal: Right total hip arthroplasties without complication. Multilevel degenerative disc disease in the lumbar spine. IMPRESSION: 1. Nonobstructing 3 mm left renal stone. 2. No ureteral stones or obstructive uropathy. Dictated by: Dictated on workstation # [id number]
== END 2022-11-19 14:46 | disposition home or self-care (01) ==
LOC: EDUNIT# 11:32 → ER 11:34
DX: N20.0 Calculus of kidney (principal); E11.9 Type 2 diabetes mellitus without complications; Z79.4 Long term (current) use of insulin
CPT/HCPCS: 36415; 74176; 80053; 81000; 85025

== ENCOUNTER 2022-11-28 05:32 | Outpatient (CLI) | payer MEDICARE, OTHER | END 2022-11-29 07:50 | disposition home or self-care (01) | LOC: PREOP 05:32 | PROVIDERS: ATTEND Specialist | DX: Z01.818 Encounter for other preprocedural examination (principal) ==

== ENCOUNTER 2022-12-01 09:06 | Day surgery (SDC) | payer MEDICARE, OTHER ==
[~2022-12-01] VITALS: Ht 195.6 cm; Wt 121.0 kg
[2022-12-01 09:05] VITALS: BP 151/80
[2022-12-01] MEDS: TETRACAINE 0.5% OPHTH SOLN 4 ML BTL (SINGLE DOSE ONLY) OU PRN ×4 (09:24→09:40)
[2022-12-01] MEDS: TROPICAMIDE 1% OPH SOLN (MYDRIACYL) 15 ML BTL OP SCH ×3 (09:27→09:40)
[2022-12-01] MEDS: PHENYLEPHRINE 10% OPHTH (NEO-SYN) 5 ML BTL OU SCH ×3 (09:27→09:40)
[2022-12-01] MEDS ORDERED: MOXIFLOXACIN OPHTH SOLN 5 MG/ML 0.3 ML SYRINGE OP ONE (09:30)
[2022-12-01] MEDS ORDERED: POVIDONE (BETADINE) OPHTH SOLN 5% 30 ML OP ONE (09:30)
[2022-12-01] MEDS ORDERED: TIMOLOL 0.5% (CATARACTS) 0.3 ML BTL OU PRN (09:30)
--- NOTE | 2022-12-01 09:33 | Ophthalmologist Pre-Op Note ---
Pre-Operative Progress Note H&P Reviewed The H&P was reviewed, patient examined and no changes noted. Date H&P Reviewed: Dec 01, 2022 Time H&P Reviewed: 09:33 Pre-Op Dx Cataract, Left Eye FANI CORDOBA MD Dec 01, 2022 09:33
[2022-12-01] MEDS ORDERED: MIDAZOLAM 2 MG/2 ML (VERSED) VIAL ONE (10:04)
--- NOTE | 2022-12-01 10:28 | Ophthalmology Operative Report ---
Cataract removal/placement IOL PREOPERATIVE DIAGNOSIS: Cataract Left Eye POSTOPERATIVE DIAGNOSIS: Cataract Left Eye PROCEDURE: Cataract removal and placement of posterior chamber implant, left eye SURGEON: Cash Cordoba ANESTHESIA: Topical with sedation COMPLICATIONS: None ESTIMATED BLOOD LOSS: Minimal DESCRIPTION OF PROCEDURE: After proper informed consent was obtained, the patient, a 77 male, was taken to the Operating Room and the left eye was anesthetized with tetracaine. The left eye was then prepped and draped in the usual manner. A wire lid speculum was placed. A paracentesis was made at the left hand position. Preservative free lidocaine was injected into the anterior chamber followed by viscoelastic. A clear corneal incision was made in the temporal position. A capsulorrhexis was preformed and the central nuclear and cortical material were removed. The posterior capsule was polished and an Arsen 21.0 [id number] was placed into the capsular bag. The residual viscoelastic was aspirated and balanced saline solution was injected into the anterior chamber. Moxifloxacin was injected into the anterior chamber. The wound was checked and found to be water tight. The patient tolerated the procedure well without complications. CASH CORDOBA MD Dec 01, 2022 10:28
[2022-12-01 10:33] VITALS: BP 162/77
--- NOTE | 2022-12-01 11:51 | Anesthesia-General Post-Op ---
MAC Patient Condition Mental Status/LOC: Same as Preop Cardiovascular: Satisfactory Nausea/Vomiting: Absent Respiratory: Satisfactory Pain: Controlled Complications: Absent Post Op Complications Complications None Follow Up Care/Instructions Patient Instructions None needed. Anesthesiology Discharge Order Discharge Order Patient is doing well, no complaints, stable vital signs, no apparent adverse anesthesia problems. No complications reported per nursing. BRENDEN VALENTIN CRNA Dec 01, 2022 11:51
== END 2022-12-01 10:37 | disposition home or self-care (01) ==
LOC: SDC 09:06
PROVIDERS: ATTEND Specialist
DX: H25.9 Unspecified age-related cataract (principal); E66.9 Obesity, unspecified; Z68.31 Body mass index [BMI] 31.0-31.9, adult; Z87.891 Personal history of nicotine dependence
CPT/HCPCS: 66984; V2632

== ENCOUNTER 2022-12-27 19:09 | Inpatient (IN) | payer MEDICARE, OTHER ==
[~2022-12-27] VITALS: Ht 195.5 cm; Wt 121.3 kg
[~2022-12-27 19:09] MED LIST changes: -INSU100I29 SQ; +INSU100I30 SQ
--- NOTE | 2022-12-27 19:28 | ED GU-Male ---
General Chief Complaint: - Reproductive Stated Complaint: UNABLE TO URINATE Source: patient Exam Limitations: no limitations History of Present Illness Date Seen by Provider: Dec 27, 2022 Time Seen by Provider: 19:21 Initial Comments Patient is a 77-year-old male with a history of enlarged prostate, kidney stones who presents the ED for decreased urine output, pain with urination. Patient states he started having symptoms this Sunday with difficulty urinating, weakened stream and some mild suprapubic pain and discomfort. This evening right before arrival states he had to urinate and produced a small amount of urine with weakened stream. Patient reports suprapubic discomfort this evening. Denies of any specific sharp stabbing pain or radiating. Patient states he is was seen by urology last week at [facility] with a cystoscopy performed noted a large prostate. Currently on medication which she cannot recall. Patient states he was placed on antibiotic and something to help him urinating after being evaluated at [facility] this past Sunday. Denies fever, chills, chest pain, shortness of breath, back pain, headache, dizziness, nausea, vomiting, diarrhea Allergies and Home Medications Allergies Coded Allergies: No Known Drug Allergies (Unverified , 03/15/22) Patient Home Medication List Home Medication List Reviewed: Yes Aspirin (Aspirin) 81 Mg Tab.chew, 81 MG PO DAILY, (Reported) Entered as Reported by: RUBEN MARINO on 03/15/22 152 Atorvastatin Calcium (Atorvastatin Calcium) 10 Mg Tablet, 10 MG PO HS, (Reported) Entered as Reported by: RUBEN MARINO on 11/13/22 1607 Calcium Citrate/Vitamin D3 (Calcium Citrate - Vit D3 Tab) 1 Each Tablet, 1 EACH PO, (Reported) Entered as Reported by: PO DE LA PAZ on 08/07/12 151 Chlorthalidone (Chlorthalidone) 25 Mg Tablet, 25 MG PO DAILY, (Reported) Entered as Reported by: PO DE LA PAZ on 08/07/12 151 Famotidine (Acid Live In Caregiver (FAMOTIDINE)) 20 Mg Tablet, 20 MG PO HS, (Reported) Entered as Reported by: RUBEN MARINO on 03/15/22 152 Hydrocodone/Acetaminophen (Hydrocodone-Acetamin 5-325 mg) 5 Mg-325 Mg Tablet, 1 TAB PO UD PRN for PAIN-MODERATE (5-7), (Reported) Entered as Reported by: RUBEN MARINO on 11/13/22 160 Indomethacin (Indomethacin) 25 Mg Capsule, 25 MG PO UD, (Reported) Entered as Reported by: RUBEN MARINO on 03/15/22 152 Insulin Aspart (Novolog Flexpen) 100 Unit/Ml (3 Ml) Solution, 5 UNITS SQ AC, (Reported) Entered as Reported by: RUBEN MARINO on 03/15/22 152 Insulin Detemir (Levemir Flextouch) 100 Unit/Ml (3 Ml) Insuln.pen, 18 UNIT SQ BID, (Reported) Entered as Reported by: RUBEN MARINO on 03/15/22 152 Metformin Hcl (Glucophage) 500 Mg Tab, 1,000 MG PO BID, (Reported) Entered as Reported by: FELA QUINONEZ on 07/27/11 1659 Metoprolol Tartrate (Metoprolol Tartrate) 50 Mg Tablet, 50 MG PO BID, (Reported) Entered as Reported by: RUBEN MARINO on 03/15/22 152 Multivitamin (Multi-Vitamin Daily) 1 Each Tablet, 1 EACH PO DAILY, (Reported) Entered as Reported by: PO DE LA PAZ on 08/07/12 1511 [place] 3 Polyunsat Fatty Acids (Fish Oil) 1,000 Mg Cap, 1,000 MG PO BID, (Reported) Entered as Reported by: PO DE LA PAZ on 08/07/12 151 Testosterone Cypionate (Testosterone Cypionate) 200 Mg/Ml Vial, 200 MG IM, (Reported) Entered as Reported by: RUBEN MARINO on 03/15/22 152 Tirzepatide (Mounjaro) 5 Mg/0.5 Ml Pen.injctr, 5 MG SQ WEEK, (Reported) Entered as Reported by: RUBEN MARINO on 11/13/22 160 Tramadol HCl (Tramadol HCl) 50 Mg Tablet, 50 MG PO UD, (Reported) Entered as Reported by: RUBEN MARINO on 11/13/22 160 [Lisinopril 20 Mg] , 20 MG DAILY, (Reported) Entered as Reported by: FELA QUINONEZ on 07/30/11 1255 Review of Systems Review of Systems Constitutional: No chills, No diaphoresis, No malaise, No weakness EENTM: No ear pain, No blurred vision, No double vision Respiratory: No cough, No dyspnea on exertion, No short of breath Cardiovascular: No chest pain, No edema Gastrointestinal: abdominal pain; No diarrhea, No nausea, No vomiting Genitourinary: denies burning, denies discharge; frequency, pain, urgency Musculoskeletal: No back pain, No joint pain Skin: No change in color, No change in hair/nails All Other Systemes Reviewed Negative Unless Noted: Yes Past Wwtrzmf-Wqccyr-Iyjrny Hx Patient Social History Tobacco Use?: No Substance use?: No Alcohol Use?: No Immunizations Up To Date First/Initial COVID19 Vaccinat: 10/28/20 Second COVID19 Vaccination [place]: 11/25/20 Third COVID19 Vaccination Date: 07/29/21 Seasonal Allergies Seasonal Allergies: Yes Past Medical History Surgeries: Yes (BILAT KNEE REPLACEMENT, RIGHT HIP REPLACMENT) Appendectomy, Vasectomy Respiratory: Yes Sleep Apnea Currently Using CPAP: Yes Currently Using BIPAP: No Cardiac: Yes Heart Murmur, High Cholesterol, Hypertension Neurological: No Reproductive Disorders: No Sexually Transmitted Disease: No HIV/AIDS: No Genitourinary: No Gastrointestinal: Yes Gastroesophageal Reflux, Polyps Musculoskeletal: Yes Arthritis, Gout Endocrine: Yes Diabetes, Insulin dep HEENT: No Loss of Vision: Bilateral Hearing Impairment: Denies Cancer: No Psychosocial: No Integumentary: No Blood Disorders: No Adverse Reaction/Blood Tranf: No Physical Exam Vital Signs Vital Signs - First Documented 12/27/22 19:13 Temp 38.5 Pulse 102 B/P (MAP) 187/88 (121) Pulse Ox 94 O2 Delivery Room Air Capillary Refill : Height, Weight, BMI Height: 6'5.00" Weight: 295lbs. 0.0oz. 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, no motor/sensory deficits, alert, normal mood/affect, oriented x 3 Skin: normal color, warm/dry Focused Exam Lactate Level 12/27/22 19:35: Lactic Acid Level 1.63 Lactic Acid Level Laboratory Tests Test 12/27/22 19:35 Lactic Acid Level 1.63 MMOL/L (0.50-2.00) Progress/Results/Core Measures Suspected Sepsis SIRS Temperature: Pulse: Respiratory Rate: Laboratory Tests 12/27/22 19:35: White Blood Count 8.8 Blood Pressure / Mean: 12/27/22 19:35: Lactic Acid Level 1.63 Laboratory Tests 12/27/22 19:35: Creatinine 1.99H, Platelet Count 154, Total Bilirubin 0.8 Results/Orders Lab Results Laboratory Tests Test 12/27/22 19:25 12/27/22 19:35 Range/Units Urine Color YELLOW Urine Clarity CLOUDY Urine pH 5.5 5-9 Urine Specific [place] 1.015 L 1.016-1.022 Urine Protein 1+ H NEGATIVE Urine Glucose (UA) 2+ H NEGATIVE Urine Ketones NEGATIVE NEGATIVE Urine Nitrite POSITIVE H NEGATIVE Urine Bilirubin NEGATIVE NEGATIVE Urine Urobilinogen 0.2 < = 1.0 MG/DL Urine Leukocyte Esterase 2+ H NEGATIVE Urine RBC (Auto) 3+ H NEGATIVE Urine RBC RARE /HPF Urine WBC TNTC H /HPF Urine Squamous Epithelial Cells NONE /HPF Urine Crystals NONE /LPF Urine Bacteria LARGE H /HPF Urine Casts NONE /LPF Urine Mucus NEGATIVE /LPF Urine Culture Indicated YES White Blood Count 8.8 4.3-11.0 10^3/uL Red Blood Count 4.62 4.30-5.52 10^6/uL Hemoglobin 13.5 13.3-17.7 g/dL Hematocrit 40 40-54 % Mean Corpuscular Volume 87 80-99 fL Mean Corpuscular Hemoglobin 29 25-34 pg Mean Corpuscular Hemoglobin Concent 34 32-36 g/dL Red Cell Distribution Width 14.3 10.0-14.5 % Platelet Count 154 130-400 10^3/uL Mean Platelet Volume 9.2 9.0-12.2 fL Immature Granulocyte % (Auto) 1 % Neutrophils (%) (Auto) 77 H 42-75 % Lymphocytes (%) (Auto) 9 L 12-44 % Monocytes (%) (Auto) 12 0-12 % Eosinophils (%) (Auto) 1 0-10 % Basophils (%) (Auto) 1 0-10 % Neutrophils # (Auto) 6.7 1.8-7.8 10^3/uL Lymphocytes # (Auto) 0.8 L 1.0-4.0 10^3/uL Monocytes # (Auto) 1.1 H 0.0-1.0 10^3/uL Eosinophils # (Auto) 0.1 0.0-0.3 10^3/uL Basophils # (Auto) 0.1 0.0-0.1 10^3/uL Immature Granulocyte # (Auto) 0.1 0.0-0.1 10^3/uL Sodium Level 134 L 135-145 MMOL/L Potassium Level 4.2 3.6-5.0 MMOL/L Chloride Level 98 98-107 MMOL/L Carbon Dioxide Level 23 21-32 MMOL/L Anion Gap 13 5-14 MMOL/L Blood Urea Nitrogen 48 H 7-18 MG/DL Creatinine 1.99 H 0.60-1.30 MG/DL Estimat Glomerular Filtration Rate 34 BUN/Creatinine Ratio 24 Glucose Level 316 H 70-105 MG/DL Lactic Acid Level 1.63 0.50-2.00 MMOL/L Calcium Level 10.3 H 8.5-10.1 MG/DL Corrected Calcium 10.3 H 8.5-10.1 MG/DL Total Bilirubin 0.8 0.1-1.0 MG/DL Aspartate Amino Transf (AST/SGOT) 25 5-34 U/L Alanine Aminotransferase (ALT/SGPT) 23 0-55 U/L Alkaline Phosphatase 73 40-136 U/L C-Reactive Protein High Sensitivity 7.84 H 0.00-0.50 MG/DL Total Protein 7.1 6.4-8.2 GM/DL Albumin 4.0 3.2-4.5 GM/DL My Orders Orders - ILSA ZARAGOZA Bladder Scan (12/27/22 19:14) Ua Culture If Indicated (12/27/22 19:14) Cbc With Automated Diff (12/27/22 19:19) Comprehensive Metabolic Panel (12/27/22 19:19) Catheter(Urinary) Insert & Ass 03,15 (12/27/22 19:19) Lidocaine 2% (Urojet) (Xylocaine Urojet) (12/27/22 19:30) Hs C Reactive Protein (12/27/22 19:30) Blood Culture (12/27/22 19:31) Lactic Acid Analyzer (12/27/22 19:31) Ns Iv 1000 Ml (Sodium Chloride 0.9%) (12/27/22 19:31) Acetaminophen Tablet (Tylenol Tablet) (12/27/22 19:45) Blood Culture (12/27/22 19:45) Urine Culture (12/27/22 19:25) Ceftriaxone 1 Gm Pre-Mix (Rocephin 1 Gm (12/27/22 19:50) Ed Admission (Communication) (12/27/22 20:41) Medications Given in ED Current Medications Medications Dose Ordered Sig/Osei Route Start Time Stop Time Status Last Admin Dose Admin Acetaminophen 1,000 mg ONCE ONCE PO 12/27/22 19:45 12/27/22 19:46 DC 12/27/22 19:45 1,000 MG Lidocaine HCl 10 ml ONCE ONCE TOP 12/27/22 19:30 12/27/22 19:31 DC 12/27/22 19:46 10 ML Vital Signs/I&O 12/27/22 19:13 Temp 38.5 Pulse 102 B/P (MAP) 187/88 (121) Pulse Ox 94 O2 Delivery Room Air Capillary Refill : Departure Communication (PCP) Reviewed previous ER visits, H&P, testing. Was seen here in November with hematuria diagnosed with left nephrolithiasis. Followed up with [facility] urology last week had a cystoscopy noted to have enlarged prostate. Patient Was placed on a medication which he cannot recall. Likely finasteride. Patient was seen Sunday diagnosed with urinary tract infection was placed on Macrobid and suspect Flomax to help urinate. Worsening symptoms over the past few days. On arrival febrile slightly tachycardic. Blood cultures were ordered and lactic acid. CBC, CMP and urinalysis were ordered. Patient reports weakened urine stream. Concern for prostatitis versus cystitis versus sepsis. CBC showed normal white blood count. Chemistry showed acute kidney injury with GFR of 34, creatinine of 1.99. Slight change from his last lab work in November. Patient was started on a liter of fluid. Normal lactic acid. Bladder scan over 800 ml of urine in the bladder. Catheter was placed concern for urine retention. After catheter was placed, drained near 1100 ml of urine. Cloudy urine concerning for infection. Urinalysis was positive for infection. Patient was given Rocephin 1g. Due to the change in kidney function and failed outpatient therapy patient will be admitted for further evaluation. Contacted hospitalist Dr. Muñoz who agrees to accept patient. Patient met SIRS criteria with tachycardia and fever with positive urinalysis concerning for sepsis. Does not appear severe sepsis or septic shock. Patient agrees with admission. Patient did receive 1 L fluid. Patient was hypertensive on arrival but that did improve without intervention. Pain improved after catheter was placed. Reassessed abdomen without any tenderness. Imaging was held at this time. Suspect BPH with urinary tract infection Impression Primary Impression: Urinary tract infection Additional Impression: Sepsis Disposition: 30 STILL A PATIENT Condition: Stable Admissions Decision to Admit Reason: Admit from ER (General) Decision to Admit/Date: Dec 27, 2022 Time/Decision to Admit Time: 20:45 Departure-Patient Inst. Referrals: CLIVE MUÑOZ DO (PCP/Family) Primary Care Physician ILSA ZARAGOZA Dec 27, 2022 19:28
[2022-12-27] MEDS ORDERED: LIDOCAINE UROJET 2% GEL 10 ML PKG TOP ONE (19:30)
[2022-12-27] MEDS ORDERED: NS IV 1000 ML 1,000 ML IV STA (19:31)
[2022-12-27 19:36] LABS: BILIRUBIN,URINE NEGATIVE (NEGATIVE); CLARITY,URINE CLOUDY; COLOR,URINE YELLOW; GLUCOSE, URINE (UA) 2+ (NEGATIVE); KETONES,URINE NEGATIVE (NEGATIVE); LEUKOCYTE ESTERASE ,URINE 2+ (NEGATIVE); NITRITE,URINE POSITIVE (NEGATIVE); PH,URINE 5.5 (5-9); PROTEIN,URINE 1+ (NEGATIVE)
[2022-12-27 19:43] LABS: BASOPHILS # (AUTO) 0.1 10^3/uL (0.0-0.1); BASOPHILS % (AUTO) 1 % (0-10); EOSINOPHILS # (AUTO) 0.1 10^3/uL (0.0-0.3); EOSINOPHILS % (AUTO) 1 % (0-10); HEMATOCRIT 40 % (40-54); HEMOGLOBIN 13.5 g/dL (13.3-17.7); LYMPHOCYTES # (AUTO) 0.8 10^3/uL (1.0-4.0); LYMPHOCYTES % (AUTO) 9 % (12-44); MEAN CORPUSCULAR HEMOGLOBIN 29 pg (25-34); MEAN CORPUSCULAR HGB CONC 34 g/dL (32-36); MEAN CORPUSCULAR VOLUME 87 fL (80-99); MEAN PLATELET VOLUME 9.2 fL (9.0-12.2); MONOCYTES # (AUTO) 1.1 10^3/uL (0.0-1.0); MONOCYTES % (AUTO) 12 % (0-12); NEUTROPHILS # (AUTO) 6.7 10^3/uL (1.8-7.8); NEUTROPHILS % (AUTO) 77 % (42-75); PLATELET COUNT 154 10^3/uL (130-400); WHITE BLOOD COUNT 8.8 10^3/uL (4.3-11.0)
[2022-12-27 19:45] LABS: BACTERIA,URINE LARGE /HPF
[2022-12-27] MEDS ORDERED: ACETAMINOPHEN 500 MG TAB (TYLENOL) PO ONE (19:45)
[2022-12-27 19:47] LABS: WBC,URINE TNTC /HPF
[2022-12-27 19:48] LABS: RBC,URINE RARE /HPF
[2022-12-27] MEDS ORDERED: cefTRIAXone 1 GM PRE-MIX 50 ML IV STA (19:50)
[2022-12-27 19:51] LABS: POTASSIUM 4.2 MMOL/L (3.6-5.0)
[2022-12-27 19:52] LABS: CALCIUM 10.3 MG/DL (8.5-10.1)
[2022-12-27 19:54] LABS: TOTAL PROTEIN 7.1 GM/DL (6.4-8.2)
[2022-12-27 19:55] LABS: BILIRUBIN,TOTAL 0.8 MG/DL (0.1-1.0)
[2022-12-27 19:58] LABS: CREATININE SERUM 1.99 MG/DL (0.60-1.30)
[2022-12-27] MEDS ORDERED: cloNIDine 0.1 MG (CATAPRES) TAB PO PRN (21:30)
[2022-12-27] MEDS ORDERED: HYDROmorphone 2 MG/ML VIAL (DILAUDID) IV PRN (21:30)
[2022-12-27] MEDS ORDERED: ONDANSETRON 4 MG (ZOFRAN) ORAL DISSOLVE TAB PO PRN (21:30)
[2022-12-27] MEDS ORDERED: ONDANSETRON 4 MG/2 ML (SDV) Z0FRAN IV PRN (21:30)
[2022-12-27] MEDS ORDERED: diphenhydrAMINE 50 MG/ML INJ (BENADRYL) IVP PRN (21:30)
[2022-12-27] MEDS ORDERED: MILK OF MAGNESIA 400 MG/5 ML 30 ML UDC PO PRN (21:30)
[2022-12-27] MEDS ORDERED: ANTACID SUSP 30 ML UDC (MYLANTA) PO PRN (21:30)
[2022-12-27] MEDS ORDERED: CALCIUM CARBONATE 500 MG (TUMS) TAB.CHEW PO PRN (21:30)
[2022-12-27] MEDS ORDERED: MELATONIN 3 MG TABLET PO PRN (21:30)
[2022-12-27] MEDS ORDERED: polyethylene glycoL POWDER 17 GM (MIRALAX) PACK PO PRN (21:30)
[2022-12-27] MEDS ORDERED: ALPRAZolam 1 MG (XANAX) TAB PO PRN (21:30)
[2022-12-27] MEDS ORDERED: LACTULOSE SYRUP 10GM/15ML (ENULOSE) 30ML UDC PO PRN (21:30)
[2022-12-27] MEDS ORDERED: diphenhydrAMINE 25 MG TAB (BENADRYL) PO PRN (21:30)
[2022-12-27] MEDS ORDERED: BISACODYL 10 MG SUPP (DULCOLAX) PR PRN (21:30)
[2022-12-27] MEDS: NS IV 1000 ML 1,000 ML IV SCH (21:56)
[2022-12-27 22:00] VITALS: BP 152/71
[2022-12-27 22:11] VITALS: BP 187/88
[2022-12-27 23:14] VITALS: BP 140/67
[2022-12-28 03:45] VITALS: BP 168/71
[2022-12-28 05:53] LABS: BASOPHILS % (AUTO) 1 % (0-10); EOSINOPHILS % (AUTO) 0 % (0-10); HEMATOCRIT 38 % (40-54); HEMOGLOBIN 12.7 g/dL (13.3-17.7); LYMPHOCYTES # (AUTO) 0.7 10^3/uL (1.0-4.0); LYMPHOCYTES % (AUTO) 8 % (12-44); MEAN CORPUSCULAR HEMOGLOBIN 29 pg (25-34); MEAN CORPUSCULAR HGB CONC 34 g/dL (32-36); MEAN CORPUSCULAR VOLUME 87 fL (80-99); MEAN PLATELET VOLUME 9.5 fL (9.0-12.2); MONOCYTES # (AUTO) 1.1 10^3/uL (0.0-1.0); MONOCYTES % (AUTO) 13 % (0-12); NEUTROPHILS # (AUTO) 6.7 10^3/uL (1.8-7.8); NEUTROPHILS % (AUTO) 78 % (42-75); PLATELET COUNT 142 10^3/uL (130-400); WHITE BLOOD COUNT 8.6 10^3/uL (4.3-11.0)
[2022-12-28 06:04] LABS: POTASSIUM 3.8 MMOL/L (3.6-5.0)
[2022-12-28 06:06] LABS: CALCIUM 9.4 MG/DL (8.5-10.1)
[2022-12-28 06:07] LABS: TOTAL PROTEIN 6.5 GM/DL (6.4-8.2)
[2022-12-28 06:09] LABS: BILIRUBIN,TOTAL 0.8 MG/DL (0.1-1.0)
[2022-12-28] MEDS: inSUlin ASPART (NovoLOG) 1 UNIT/0.01 ML (CHARGE PER UNIT) SC SCH ×5 (07:05→20:41)
[2022-12-28] MEDS: NS IV 1000 ML 1,000 ML IV SCH (07:05)
[2022-12-28 07:41] LABS: CREATININE SERUM 1.48 MG/DL (0.60-1.30)
[2022-12-28 07:42] VITALS: BP 158/69
[2022-12-28 08:16] LABS: ALBUMIN 3.5 GM/DL (3.2-4.5)
--- NOTE | 2022-12-28 08:37 | History & Physical ---
GUSTAVO SUÁREZ 12/28/22 0837: History of Present Illness History of Present Illness Reason for visit/HPI Patient is a 77 year old male with medical history of enlarged prostate, IDDM, SHAYE w/ cpap use, hyperlipidemia, HTN, Heart murmur, GERD, and GOUT who presented to the ED overnight (12/27) for dysuria and suprapubic pain. He reports having difficulties with initiation of flow and frequent urination at night for quite some time now and was seen last week @ [facility] where he had a cystoscopy which showed enlarged prostate. He was started on what sounds like a 5-THEODORE, although patient isn't sure the name or dose. Since his cystoscopy, however, he began to have worsening suprapubic pain and dysuria. He reports being seen at [facility] on Sunday where he was given AZO and an unknown abx. His symptoms worsened, leading him to present to the ED last night where he was febrile, tachycardic, hypertensive, and had a urinalysis significant for 1+ protein, 2+ glucose, Nitrites, leuk 2+, RBC 3+, WBC +, and large bacteria present. His WBC was not elevated at 8.8 and his LA was WNL at 1.63. In the ED a ramon catheter was placed after a bladder scan showing retention and around 1100ml urine came out. He was admitted to the unit for sepsis secondary to complicated UTI and started Ceftriaxone 1g IV Q24 hr with urine cultures & sensitivities pending. When seen this morning, the patient was sitting in bed after having ate a full breakfast and was alert and oriented. He is afebrile and his tachycardia has improved. He is still having some intermittent hypertension. He has a ramon in place with murky, yellow urine in the bag. He reports having a good appetite and an improvement in the suprapubic pain from yesterday. He is not having any LH, dizziness, CP, palpitations, SOB, abd pain, or N/V at this time. Date of Admission Dec 27, 2022 at 21:20 Date Seen by a Provider: Dec 28, 2022 Time Seen by a Provider: 08:30 I consulted on this patient on 12/28/22 08:31 Attending Physician Brittany Muñoz DO Admitting Physician Admitting Physician: Brittany Muñoz DO Attending Physician: Muñoz,Brittany DO Consult Allergies and Home Medications Allergies Coded Allergies: No Known Drug Allergies (Unverified , 03/15/22) Patient Home Medication List Allopurinol (Allopurinol) 100 Mg Tablet, 100 MG PO 1200, (Reported) Entered as Reported by: LUCIO MARTINI on 12/28/221136 Last Action: Continued Aspirin (Aspirin) 81 Mg Tab.chew, 81 MG PO HS, (Reported) Entered as Reported by: RUBEN MARINO on 03/15/22 1526 Last Action: Continued Atorvastatin Calcium (Atorvastatin Calcium) 10 Mg Tablet, 10 MG PO HS, (Reported) Entered as Reported by: RUBEN MARINO on 11/13/22 1607 Last Action: Continued Brimonidine Tartrate (Brimonidine Tartrate) 0.2 % Btl, 1 DROP OS BID, (Reported) Entered as Reported by: LUCIO MARTINI on 12/28/221136 Last Action: Continued Calcium Carbonate (Calcium) 600 Mg Calcium (1500 Mg) Tablet, 600 MG PO DAILY, (Reported) Entered as Reported by: LUCIO MARTINI on 12/28/221136 Last Action: Continued Chlorthalidone (Chlorthalidone) 25 Mg Tablet, 25 MG PO DAILY, (Reported) Entered as Reported by: LUCIO MARTINI on 12/28/221136 Last Action: Converted Famotidine (Acid Certified Medication Technician (FAMOTIDINE)) 20 Mg Tablet, 20 MG PO HS, (Reported) Entered as Reported by: RUBEN MARINO on 03/15/22 1526 Last Action: Continued Finasteride (Finasteride) 5 Mg Tablet, 5 MG PO 1200, (Reported) Entered as Reported by: LUCIO MARTINI on 12/28/221136 Last Action: Continued Fish Oil/Dha/Epa (Fish Oil 1,200 mg Fish Oil) 1,200 Mg-144 Mg-216 Mg Capsule, 1 EACH PO BID, (Reported) Entered as Reported by: LUCIO MARTINI on 12/28/221136 Last Action: Converted Indomethacin (Indomethacin) 25 Mg Capsule, 25 MG PO TID PRN for GOUT PAIN, (Repo rted) Entered as Reported by: LUCIO MARTINI on 12/28/221138 Last Action: Continued Insulin Aspart (Novolog Flexpen) 100 Unit/Ml (3 Ml) Solution, 7 UNITS SQ BIDAC, (Reported) Entered as Reported by: RUBEN MARINO on 03/15/221525 Last Action: Converted Insulin Detemir (Levemir Flextouch) 100 Unit/Ml (3 Ml) Insuln.pen, 23 UNIT SQ BID, (Reported) Entered as Reported by: RUBEN MARINO on 03/15/221525 Last Action: Held Lisinopril (Lisinopril) 20 Mg Tablet, 20 MG PO DAILY, (Reported) Entered as Reported by: LUCIO MARTINI on 12/28/221136 Last Action: Continued Metformin HCl (Metformin HCl) 1,000 Mg Tablet, 1,000 MG PO BID, (Reported) Entered as Reported by: LUCIO MARTINI on 12/28/221136 Last Action: Held Metoprolol Tartrate (Metoprolol Tartrate) 50 Mg Tablet, 50 MG PO BID, (Reported) Entered as Reported by: URBEN MARINO on 03/15/221525 Last Action: Continued Multivitamin (Multivitamin) 1 Each Tablet, 1 EACH PO DAILY, (Reported) Entered as Reported by: LUCIO MARTINI on 12/28/221136 Last Action: Converted Testosterone Cypionate (Testosterone Cypionate) 200 Mg/Ml Vial, 200 MG IM MONTHLY, (Reported) Entered as Reported by: RUBEN MARINO on 03/15/221525 Last Action: Held Tirzepatide (Mounjaro) 7.5 Mg/0.5 Ml Pen.injctr, 7.5 MG SQ FRI, (Reported) Entered as Reported by: LUCIO MARTINI on 12/28/221136 Last Action: Converted Discontinued Medications Calcium Citrate/Vitamin D3 (Calcium Citrate - Vit D3 Tab) 1 Each Tablet, 1 EACH PO, (Reported) Discontinued Reason: Duplicate Order Entered as Reported by: PO DE LA PAZ on 08/07/121511 Last Action: Discontinued Chlorthalidone (Chlorthalidone) 25 Mg Tablet, 25 MG PO DAILY, (Reported) Discontinued Reason: Duplicate Order Entered as Reported by: PO DE LA PAZ on 08/07/121510 Last Action: Discontinued Hydrocodone/Acetaminophen (Hydrocodone-Acetamin 5-325 mg) 5 Mg-325 Mg Tablet, 1 TAB PO UD PRN for PAIN-MODERATE (5-7), (Reported) Discontinued Reason: Duplicate Order Entered as Reported by: RUBEN MARINO on 11/13/221606 Last Action: Discontinued Indomethacin (Indomethacin) 25 Mg Capsule, 25 MG PO UD, (Reported) Discontinued Reason: Duplicate Order Entered as Reported by: RUBEN MARINO on 03/15/22 1526 Last Action: Discontinued Metformin Hcl (Glucophage) 500 Mg Tab, 1,000 MG PO BID, (Reported) Discontinued Reason: Duplicate Order Entered as Reported by: FELA QUINONEZ on 07/27/11 1659 Last Action: Discontinued Multivitamin (Multi-Vitamin Daily) 1 Each Tablet, 1 EACH PO DAILY, (Reported) Discontinued Reason: Duplicate Order Entered as Reported by: PO DE LA PAZ on 08/07/121510 Last Action: Discontinued [place] 3 Polyunsat Fatty Acids (Fish Oil) 1,000 Mg Cap, 1,000 MG PO BID, (Reported) Discontinued Reason: Duplicate Order Entered as Reported by: PO DE LA PAZ on 08/07/121510 Last Action: Discontinued Tirzepatide (Mounjaro) 5 Mg/0.5 Ml Pen.injctr, 5 MG SQ WEEK, (Reported) Discontinued Reason: Duplicate Order Entered as Reported by: RUBEN MARINO on 11/13/221606 Last Action: Discontinued Tramadol HCl (Tramadol HCl) 50 Mg Tablet, 50 MG PO UD, (Reported) Discontinued Reason: Duplicate Order Entered as Reported by: RUBEN MARINO on 11/13/221606 Last Action: Discontinued [Lisinopril 20 Mg] , 20 MG DAILY, (Reported) Discontinued Reason: Duplicate Order Entered as Reported by: FELA QUINONEZ on 07/30/11 1255 Last Action: Discontinued Past Guvuulj-Sacdyg-Lxsthy Hx Patient Social History Tobacco Use?: No Smoking Status: Former Smoker Smokeless Tobacco Frequency: Never a User Use of E-Cig and/or Vaping dev: No Substance use?: No Alcohol Use?: Yes Alcohol type: Beer Alcohol Frequency: Once in a while Pt feels they are or have been: No Immunizations Up To Date Date of Influenza Vaccine: Jun 25, 2017 First/Initial COVID19 Vaccinat: 10/28/20 Second COVID19 Vaccination Canelo: 11/25/20 Date of Pneumonia Vaccine: Oct 01, 2014 Seasonal Allergies Seasonal Allergies: Yes Current Status Advance Directives: Yes Communicates: Verbally Primary Language: Haitian Preferred Spoken Language: Haitian Is interpretation needed?: No Implanted or Applied Medical D: CPAP Past Medical History Surgeries: Appendectomy, Orthopedic (Bilateral Total knee rx, right hip rx), Vasectomy Sleep Apnea Currently Using CPAP: Yes Currently Using BIPAP: No Heart Murmur, High Cholesterol, Hypertension Sexually Transmitted Disease: No HIV/AIDS: No Gastroesophageal Reflux, Polyps Arthritis, Gout Diabetes, Insulin dep Loss of Vision: Bilateral Hearing Impairment: Denies Blood Disorders: No Adverse Reaction/Blood Tranf: No Enlarged Prostate Family Medical History Heart Disease (mother), Diabetes (mother), Lung Disease (Lung cancer - father) Review of Systems Constitutional: chills (last night, resolved), fever (last night, resolved), weakness (mild) EENTM: No hearing loss, No vision loss Respiratory: No cough, No short of breath Cardiovascular: No chest pain, No palpitations Gastrointestinal: abdominal pain (suprapubic pain last night prior to catheter placement. resolved.); No constipation, No nausea, No vomiting Genitourinary: decreased output, frequency, nocturia, pain, other (since ramon catheter placement, symptoms have improved) Musculoskeletal: no symptoms reported Skin: no symptoms reported Psychiatric/Neurological: No Symptoms Reported Physical Exam Vital Signs Vital Signs - First Documented 12/27/22 12/27/22 12/27/22 19:13 22:00 22:11 Temp 38.5 Pulse 102 Resp 22 B/P (MAP) 187/88 (121) Pulse Ox 94 O2 Delivery Room Air FiO2 21 Capillary Refill : Height, Weight, BMI Height: 6'5.00" Weight: 295lbs. 0.0oz. [id number]; 31.73 BMI Method: General Appearance: No Apparent Distress, WD/WN, Obese Eyes: Bilateral Eye PERRL, Bilateral Eye EOMI HEENT: PERRL/EOMI, Pharynx Normal, Moist Mucous Membranes Neck: Full Range of Motion, Non Tender, Supple Respiratory: Chest Non Tender, Lungs Clear, Normal Breath Sounds, No Accessory Muscle Use, No Respiratory Distress Cardiovascular: Regular Rate, Rhythm, Normal Peripheral Pulses, Systolic Murmur Gastrointestinal: Normal Bowel Sounds, Non Tender, Soft, Other (no suprapubic tenderness at this time. Ramon catheter in place with murky yellow urine present) Back: Normal Inspection, No CVA Tenderness, No Vertebral Tenderness Extremity: Normal Capillary Refill, Non Tender, No Calf Tenderness Neurologic/Psychiatric: Alert, Oriented x3, No Motor/Sensory Deficits Skin: Normal Color, Warm/Dry Lymphatic: No Adenopathy Assessment/Plan Assessment and Plan Sepsis secondary to complicated UTI -SIRS (+) with fever, tachycardia, and urinalysis findings. Fever and Tachycardia since improved. -Ceftriaxone 1g IV Q24hr & IVF for complicated UTI while culture and sensitivity is pending Enlarged Prostate -Likely BPH. It sounds like patient was started on a 5-THEODORE class medication by urologist at [facility] last week as he was told his prostate may shrink in size after taking it for a year. -Will include in in-patient medications once it is identified which one he has been taking. JESSY -Cr on admission 1.99. Improved to 1.48 as of 12/28. Per chart review, 1.34 on 11/19/22 as possible baseline. -IVF and monitor IDDM -Insulin sliding Scale C. Hold Metformin. HTN -Restart home meds. If BP continues to be elevated then will consider adding Hydralazine 10mg PO PRN for systolic >160 mmHg. Hyperlipidemia -Restart home meds SHAYE -Encouraged patient to have his CPAP brought in if able to use overnight Systolic Ejection Murmur -Sees Dr. Rajan. Had stress test on 09/13/22 with good exercise tolerance and estimated LVEF of 65% at that time per report. Uncertain when/if patient has had an echocardiogram. DVT proph: Lovenox Diet: as tolerated BRITTANY MUÑOZ DO 12/29/22 0458: Allergies and Home Medications Allergies Coded Allergies: No Known Drug Allergies (Unverified , 03/15/22) Patient Home Medication List Home Medication List Reviewed: Yes Allopurinol (Allopurinol) 100 Mg Tablet, 100 MG PO 1200, (Reported) Entered as Reported by: LUCIO MARTINI on 12/28/22 1137 Last Action: Continued Aspirin (Aspirin) 81 Mg Tab.chew, 81 MG PO HS, (Reported) Entered as Reported by: RUBEN MARINO on 03/15/22 1526 Last Action: Continued Atorvastatin Calcium (Atorvastatin Calcium) 10 Mg Tablet, 10 MG PO HS, (Reported) Entered as Reported by: RUBEN MARINO on 11/13/22 1607 Last Action: Continued Brimonidine Tartrate (Brimonidine Tartrate) 0.2 % Btl, 1 DROP OS BID, (Reported) Entered as Reported by: LUCIO MARTINI on 12/28/221136 Last Action: Continued Calcium Carbonate (Calcium) 600 Mg Calcium (1500 Mg) Tablet, 600 MG PO DAILY, (Reported) Entered as Reported by: LUCIO MARTINI on 12/28/221136 Last Action: Continued Chlorthalidone (Chlorthalidone) 25 Mg Tablet, 25 MG PO DAILY, (Reported) Entered as Reported by: LUCIO MARTINI on 12/28/221136 Last Action: Converted Famotidine (Acid Certified Medication Technician (FAMOTIDINE)) 20 Mg Tablet, 20 MG PO HS, (Reported) Entered as Reported by: RUBEN MARINO on 03/15/221525 Last Action: Continued Finasteride (Finasteride) 5 Mg Tablet, 5 MG PO 1200, (Reported) Entered as Reported by: LUCIO MARTINI on 12/28/221136 Last Action: Continued Fish Oil/Dha/Epa (Fish Oil 1,200 mg Fish Oil) 1,200 Mg-144 Mg-216 Mg Capsule, 1 EACH PO BID, (Reported) Entered as Reported by: LUCIO MARTINI on 12/28/221136 Last Action: Converted Indomethacin (Indomethacin) 25 Mg Capsule, 25 MG PO TID PRN for GOUT PAIN, (Reported) Entered as Reported by: LUCIO MARTINI on 12/28/221138 Last Action: Continued Insulin Aspart (Novolog Flexpen) 100 Unit/Ml (3 Ml) Solution, 7 UNITS SQ BIDAC, (Reported) Entered as Reported by: RUBEN MARINO on 03/15/221525 Last Action: Converted Insulin Detemir (Levemir Flextouch) 100 Unit/Ml (3 Ml) Insuln.pen, 23 UNIT SQ BID, (Reported) Entered as Reported by: RUBEN MARINO on 03/15/221525 Last Action: Held Lisinopril (Lisinopril) 20 Mg Tablet, 20 MG PO DAILY, (Reported) Entered as Reported by: LUCIO MARTINI on 12/28/221136 Last Action: Continued Metformin HCl (Metformin HCl) 1,000 Mg Tablet, 1,000 MG PO BID, (Reported) Entered as Reported by: LUCIO MARTINI on 12/28/221136 Last Action: Held Metoprolol Tartrate (Metoprolol Tartrate) 50 Mg Tablet, 50 MG PO BID, (Reported) Entered as Reported by: RUBEN MARINO on 03/15/221525 Last Action: Continued Multivitamin (Multivitamin) 1 Each Tablet, 1 EACH PO DAILY, (Reported) Entered as Reported by: LUCIO MARTINI on 12/28/221136 Last Action: Converted Testosterone Cypionate (Testosterone Cypionate) 200 Mg/Ml Vial, 200 MG IM MONTHLY, (Reported) Entered as Reported by: RUBEN MARINO on 03/15/221525 Last Action: Held Tirzepatide (Mounjaro) 7.5 Mg/0.5 Ml Pen.injctr, 7.5 MG SQ FRI, (Reported) Entered as Reported by: LUCIO MARTINI on 12/28/221136 Last Action: Converted Discontinued Medications Calcium Citrate/Vitamin D3 (Calcium Citrate - Vit D3 Tab) 1 Each Tablet, 1 EACH PO, (Reported) Discontinued Reason: Duplicate Order Entered as Reported by: PO DE LA PAZ on 08/07/121511 Last Action: Discontinued Chlorthalidone (Chlorthalidone) 25 Mg Tablet, 25 MG PO DAILY, (Reported) Discontinued Reason: Duplicate Order Entered as Reported by: PO DE LA PAZ on 08/07/121510 Last Action: Discontinued Hydrocodone/Acetaminophen (Hydrocodone-Acetamin 5-325 mg) 5 Mg-325 Mg Tablet, 1 TAB PO UD PRN for PAIN-MODERATE (5-7), (Reported) Discontinued Reason: Duplicate Order Entered as Reported by: RUBEN MARINO on 11/13/22 1607 Last Action: Discontinued Indomethacin (Indomethacin) 25 Mg Capsule, 25 MG PO UD, (Reported) Discontinued Reason: Duplicate Order Entered as Reported by: RUBEN MARINO on 03/15/22 152 Last Action: Discontinued Metformin Hcl (Glucophage) 500 Mg Tab, 1,000 MG PO BID, (Reported) Discontinued Reason: Duplicate Order Entered as Reported by: FELA QUINONEZ on 07/27/11 1659 Last Action: Discontinued Multivitamin (Multi-Vitamin Daily) 1 Each Tablet, 1 EACH PO DAILY, (Reported) Discontinued Reason: Duplicate Order Entered as Reported by: PO DE LA PAZ on 08/07/121510 Last Action: Discontinued [place] 3 Polyunsat Fatty Acids (Fish Oil) 1,000 Mg Cap, 1,000 MG PO BID, (Reported) Discontinued Reason: Duplicate Order Entered as Reported by: PO DE LA PAZ on 08/07/121510 Last Action: Discontinued Tirzepatide (Mounjaro) 5 Mg/0.5 Ml Pen.injctr, 5 MG SQ WEEK, (Reported) Discontinued Reason: Duplicate Order Entered as Reported by: RUBEN MARINO on 11/13/221606 Last Action: Discontinued Tramadol HCl (Tramadol HCl) 50 Mg Tablet, 50 MG PO UD, (Reported) Discontinued Reason: Duplicate Order Entered as Reported by: RUBEN MARINO on 11/13/221606 Last Action: Discontinued [Lisinopril 20 Mg] , 20 MG DAILY, (Reported) Discontinued Reason: Duplicate Order Entered as Reported by: FELA QUINONEZ on 07/30/11 1255 Last Action: Discontinued Past Skbhiac-Wbszfo-Eagexa Hx Patient Social History Marrital Status: Employed/Student: retired Smoking Status: Never a Smoker Past Medical History Diabetes, Insulin dep Review of Systems Constitutional: see HPI, dizziness, fever (last night, resolved), weakness (mild) Genitourinary: decreased output Physical Exam General Appearance: No Apparent Distress, WD/WN Eyes: Bilateral Eye Normal Inspection, Bilateral Eye PERRL, Bilateral Eye EOMI HEENT: PERRL/EOMI, Normal ENT Inspection, Pharynx Normal Neck: Full Range of Motion, Normal Inspection, Non Tender, Supple, Carotid Bruit Respiratory: Chest Non Tender, Lungs Clear, Normal Breath Sounds, No Accessory Muscle Use, No Respiratory Distress Cardiovascular: Regular Rate, Rhythm, No Edema, No Gallop, No JVD, No Murmur, Normal Peripheral Pulses, Systolic Murmur Gastrointestinal: Normal Bowel Sounds, No Organomegaly, No Pulsatile Mass, Non Tender, Soft Back: Normal Inspection, No CVA Tenderness, No Vertebral Tenderness Extremity: Normal Capillary Refill, Normal Inspection, Normal Range of Motion, Non Tender, No Calf Tenderness, No Pedal Edema Neurologic/Psychiatric: Alert, Oriented x3, No Motor/Sensory Deficits, Normal Mood/Affect Skin: Normal Color, Warm/Dry Lymphatic: No Adenopathy Assessment/Plan Admission Diagnosis Admission Status: Inpatient Order (span 2 midnights) Reason for Inpatient Admission: sepsis failue PO abx Supervisory-Addendum Brief Verification & Attestation Participated in pt care: history, MDM, physical Personally performed: exam, history, MDM, supervision of care Care discussed with: Medical Student Procedures: n/a Results interpretation: Verified all documentation Verification and Attestation of Medical Student E/M Service A medical student performed and documented this service in my presence. I reviewed and verified all information documented by the medical student and made modifications to such information, when appropriate. I personally performed the physical exam and medical decision making. Brittany Muñoz, Dec 29, 2022,04:58 GUSTAVO SUÁREZ Dec 28, 2022 08:37 BRITTANY MUÑOZ DO Dec 29, 2022 04:58
[2022-12-28] MEDS: SENNOSIDES 8.6 MG (SENOKOT) TAB PO SCH ×2 (08:51→20:58)
[2022-12-28] MEDS: DOCUSATE SODIUM 100 MG (COLACE) CAP PO SCH ×2 (08:51→20:58)
[2022-12-28 11:12] VITALS: BP 138/64
[2022-12-28] MEDS ORDERED: FINA5TAB6 PO (11:37)
[2022-12-28] MEDS ORDERED: TIRZ7.5P SQ (11:37)
[2022-12-28] MEDS ORDERED: MULT-1136 PO (11:37)
[2022-12-28] MEDS ORDERED: METF-399 PO (11:37)
[2022-12-28] MEDS ORDERED: LISI20TA26 PO (11:37)
[2022-12-28] MEDS ORDERED: BRIMON0.2 OS (11:37)
[2022-12-28] MEDS ORDERED: ALLO100T PO (11:37)
[2022-12-28] MEDS ORDERED: CHLO25TA22 PO (11:37)
[2022-12-28] MEDS ORDERED: FISH1CAP15 PO (11:37)
[2022-12-28] MEDS ORDERED: CALC600T91 PO (11:37)
[2022-12-28] MEDS ORDERED: INDO25CA99 PO (11:39)
[2022-12-28] MEDS ORDERED: INDOMETHACIN 25 MG (INDOCIN) CAP PO PRN (13:45)
[2022-12-28] MEDS ORDERED: NON-FORMULARY MEDICATION 1 EA EA (Tirzepatide (Mounjaro) 7.5 MG) SQ SCH (13:45)
[2022-12-28 15:20] VITALS: BP 162/72
--- NOTE | 2022-12-28 15:51 | Physical Therapy Evaluation ---
PT Evaluation-General Medical Diagnosis Admission Date Dec 27, 2022 at 21:20 Medical Diagnosis: Dysuria and suprapubic pain Onset Date: Dec 27, 2022 Therapy Diagnosis Therapy Diagnosis: gait deficit strength deficit Height/Weight Height (Feet): 6 Height (Inches): 5.00 Weight (Pounds): 295 Weight (Ounces): 0.0 Precautions Precautions/Isolations: Fall Prevention, Standard Precautions Weight Bear Status Right Lower Extremity: Right Full Weight Bearing Left Lower Extremity: Left Full Weight Bearing Referral Physician: Dr. Taylor Reason for Referral: Evaluation/Treatment Medical History Reviewed History: Yes Social History Home: [facility] Current Living Status: Spouse Entry Into Home: Stairs With Railing PT Steps Into Home: 5 PT Steps Inside Home: 13 Prior Prior Level of Function SCALE: Activities may be completed with or without assistive devices. 0-Nmpgohfssx-hrytyfy completes the activity by him/herself with no assistance from a helper. 5-Set-up or Clean-up Assistance-helper sets up or cleans up; patient completes activity. [place] assists only prior to or following the activity. 4-Supervision or Touching Assistance-helper provides verbal cues and/or touching/steadying and/or contact guard assistance as patient completes activity. Assistance may be provided throughout the activity or intermittently. 3-Partial/Moderate Assistance-helper does LESS THAN HALF the effort. [place] lifts, holds or supports trunk or limbs, but provides less than half the effort. 2-Substantial/Maximal Assistance-helper does MORE THAN HALF the effort. [place] lifts or holds trunk or limbs and provides more than half the effort. 7-Pwaafvwei-tcephf does ALL the effort. Patient does none of the effort to complete the activity. Or, the assistance of 2 or more helpers is required for the patient to complete the activity. If activity was not attempted, code reason: 7-Patient Refused. 9-Not Applicable-not attempted and the patient did not perform the activity before the current illness, exacerbation or injury. 10-Not Attempted due to Environmental Limitations-(lack of equipment, weather restraints, etc.). 88-Not Attempted due to Medical Conditions or Safety Concerns. Bed Mobility: 6 Transfers (B,C,W/C): 6 Gait: 6 Stairs: 6 Indoor Mobility (Ambulation): Independent Stairs: Independent Prior Devices Use: None PT Evaluation-Current Objective Patient Orientation: Person, Place, Time, Situation Attachments: [place] Catheter, IV ROM/Strength ROM Lower Extremities WFLs all planes BLEs Strength Lower Extremities 3+/5 bilaterally all planes Sensory Vision: Functional Hearing: Functional Sensation Right Lower Extremit: Intact Sensation Left Lower Extremity: Intact Transfers Roll Left to Right (QC): 3 Sit to Lying (QC): 3 Lying to Sitting/Side of Bed(Q: 3 Sit to Stand (QC): 3 Chair/Hdn-fh-Dutmg Xfer(QC): 3 Gait Does the Patient Walk?: Yes Mode of Locomotion: Walk Anticipated Mode of Locomotion: Walk Walk 10 feet (QC): 3 Walk 50 ft with 2 Turns(QC): 3 Walk 150 ft (QC): 3 Distance: 160 feet Gait Assistive Device: None Balance Sitting Static: Fair Sitting Dynamic: Fair Standing Static: Fair Standing Dynamic: Poor Assessment/Needs Patient tolerated treatment fair. He requires min A for all bed mobility and transfers except sit to stand requires mod A as he starts to fall. Patient ambulates 160 feet with no AD per his request, with min A and verbal cues for safety, progression, posture and conservation of energy. Patient ambulates with narrow SHY, bilateral out-toeing, shortened stride of length, rounded shoulders and accentuated thoracic kyphosis. Patient would benefit from AD at this time, however seems resistant. Patient in bed post treatment with all needs met, nursing notified, call light in reach. Rehab Potential: Fair PT Alf Goals Alf Goals PT Alf Goals Time Frame: Jan 27, 2023 Roll Left & Right (QC): 6 Sit to Lying (QC): 6 Lying-Sitting on Side/Bed(QC): 6 Sit to Stand (QC): 6 Chair/Mhp-dp-Swaoc Xfer(QC): 6 Toilet Transfer (QC): 6 Does the Patient Walk: Yes Walk 10 feet (QC): 6 Walk 50ft with 2 Turns (QC): 6 Walk 150 ft (QC): 6 1 Step (curb) (QC): 4 4 Steps (QC): 4 12 Steps (QC): 4 PT Plan Problem List Problem List: Activity Tolerance, Functional Strength, Safety, Balance, Gait, Transfer, Bed Mobility, ROM Treatment/Plan Treatment Plan: Continue Plan of Care Treatment Plan: Bed Mobility, Education, Functional Activity Alison, Functional Strength, Group Therapy, Gait, Safety, Therapeutic Exercise, Transfers Treatment Duration: Jan 27, 2023 Frequency: 6 times per week Estimated Hrs Per Day: .25 hour per day Patient and/or Family Agrees t: Yes Safety Risks/Education Patient Education: Gait Training, Transfer Techniques Teaching Recipient: Patient Teaching Methods: Demonstration, Discussion Response to Teaching: Verbalize Understanding, Return Demonstration Time Time In: 1524 Time Out: 1536 DATE: Dec 28, 2022 Total Billed Treatment Time: 12 Total Billed Treatment Visit, MARIEL VELASQUEZ PT Dec 28, 2022 15:51
[2022-12-28] MEDS ORDERED: INSULIN ASPART 7 UNIT SQ SCH (16:00)
[2022-12-28] MEDS: ACETAMINOPHEN 325 MG TABLET PO PRN ×2 (16:06→23:42)
[2022-12-28 19:04] VITALS: BP 131/62
[2022-12-28] MEDS: OMEGA 3 (FISH OIL) 1000 MG CAP PO SCH (20:58)
[2022-12-28] MEDS: FAMOTIDINE 20 MG (PEPCID) TABLET PO SCH (20:58)
[2022-12-28] MEDS: AtorvaSTATin TABLET 10 MG TABLET PO SCH (20:58)
[2022-12-28] MEDS: meTOprolol TARTRATE 50 MG (LOPRESSOR) TAB PO SCH (20:58)
[2022-12-28] MEDS: BRIMONIDINE 0.2% (ALPHAGAN) OPHTH SOLN 5 ML BTL OS SCH (20:59)
[2022-12-28] MEDS ORDERED: ASPIRIN 81 MG CHEW (CHILDREN'S ASA) PO SCH (21:00)
[2022-12-28] MEDS ORDERED: cefTRIAXone 1 GM PRE-MIX 50 ML IV SCH (21:00)
[2022-12-28] MEDS ORDERED: NON-FORMULARY MEDICATION 1 EA EA (Fish Oil/Dha/Epa (Fish Oil 1,200 mg Fish Oil) 1 EACH) PO SCH (21:00)
[2022-12-28] MEDS ORDERED: ASPIRIN 81 MG CHEW (CHILDREN'S ASA) PO NR (21:00)
[2022-12-28 23:35] VITALS: BP 130/70
[2022-12-29 03:23] VITALS: BP 146/53
[2022-12-29] MEDS: inSUlin ASPART (NovoLOG) 1 UNIT/0.01 ML (CHARGE PER UNIT) SC SCH ×6 (05:41→20:26)
[2022-12-29 05:52] LABS: BASOPHILS # (AUTO) 0.1 10^3/uL (0.0-0.1); BASOPHILS % (AUTO) 1 % (0-10); EOSINOPHILS # (AUTO) 0.1 10^3/uL (0.0-0.3); EOSINOPHILS % (AUTO) 1 % (0-10); HEMATOCRIT 38 % (40-54); HEMOGLOBIN 12.5 g/dL (13.3-17.7); LYMPHOCYTES # (AUTO) 1.4 10^3/uL (1.0-4.0); LYMPHOCYTES % (AUTO) 17 % (12-44); MEAN CORPUSCULAR HEMOGLOBIN 29 pg (25-34); MEAN CORPUSCULAR HGB CONC 33 g/dL (32-36); MEAN CORPUSCULAR VOLUME 87 fL (80-99); MEAN PLATELET VOLUME 9.4 fL (9.0-12.2); MONOCYTES % (AUTO) 11 % (0-12); NEUTROPHILS # (AUTO) 5.9 10^3/uL (1.8-7.8); NEUTROPHILS % (AUTO) 69 % (42-75); PLATELET COUNT 131 10^3/uL (130-400); WHITE BLOOD COUNT 8.6 10^3/uL (4.3-11.0)
[2022-12-29 06:11] LABS: ALBUMIN 3.4 GM/DL (3.2-4.5); BILIRUBIN,TOTAL 0.6 MG/DL (0.1-1.0); CALCIUM 9.2 MG/DL (8.5-10.1); CREATININE SERUM 1.19 MG/DL (0.60-1.30); POTASSIUM 3.5 MMOL/L (3.6-5.0); TOTAL PROTEIN 6.3 GM/DL (6.4-8.2)
[2022-12-29] MEDS: MULTIVIT W/MINERALS TAB (THERAGRAN M) PO SCH (06:42)
[2022-12-29 07:10] VITALS: BP 153/65
[2022-12-29] MEDS: SENNOSIDES 8.6 MG (SENOKOT) TAB PO SCH ×2 (08:46→20:29)
[2022-12-29] MEDS: CALCIUM CARBONATE 600 MG (CALCARB) TAB PO SCH (08:46)
[2022-12-29] MEDS: BRIMONIDINE 0.2% (ALPHAGAN) OPHTH SOLN 5 ML BTL OS SCH ×2 (08:46→20:32)
[2022-12-29] MEDS: meTOprolol TARTRATE 50 MG (LOPRESSOR) TAB PO SCH ×2 (08:46→20:30)
[2022-12-29] MEDS: DOCUSATE SODIUM 100 MG (COLACE) CAP PO SCH ×2 (08:46→20:29)
[2022-12-29] MEDS: OMEGA 3 (FISH OIL) 1000 MG CAP PO SCH ×2 (08:46→20:29)
[2022-12-29] MEDS: lisINopril 20 MG (PRINIVIL) TABLET PO SCH (08:46)
[2022-12-29] MEDS ORDERED: NON-FORMULARY MEDICATION 1 EA EA (Multivitamin 1 EACH) PO SCH (09:00)
[2022-12-29] MEDS ORDERED: NON-FORMULARY MEDICATION 1 EA EA (Chlorthalidone 25 MG) PO SCH (09:00)
[2022-12-29] MEDS ORDERED: ASPIRIN 81 MG CHEW (CHILDREN'S ASA) PO SCH ×2 (09:00→21:00)
--- NOTE | 2022-12-29 11:02 | Physical Therapy Daily Note ---
PT Daily Note-Current Subjective Patient sitting in chair upon PT arrival, agreeable to treatment. Patient dressed in regular clothes and states he wants to go home today. Patient rates pain at 0/10 currently. Pain Section J - Health Conditions 1. Rarely or not at all 2. Occasionally 3. Frequently 4. Almost constantly 8. Unable to answer Pain Effect on Sleep: 1 Pain Interference with Therapy: 1 Pain Interference w/Day-to-Day: 1 Mental Status Attachments: [place] Catheter Transfers SCALE: Activities may be completed with or without assistive devices. 6-Hmrmbelysq-arwofcq completes the activity by him/herself with no assistance from a helper. 5-Set-up or Clean-up Assistance-helper sets up or cleans up; patient completes activity. Guin assists only prior to or following the activity. 4-Supervision or Touching Assistance-helper provides verbal cues and/or touching/steadying and/or contact guard assistance as patient completes activity. Assistance may be provided throughout the activity or intermittently. 3-Partial/Moderate Assistance-helper does LESS THAN HALF the effort. Guin lifts, holds or supports trunk or limbs, but provides less than half the effort. 2-Substantial/Maximal Assistance-helper does MORE THAN HALF the effort. Guin lifts or holds trunk or limbs and provides more than half the effort. 3-Xdellolyg-owdjrd does ALL the effort. Patient does none of the effort to complete the activity. Or, the assistance of 2 or more helpers is required for the patient to complete the activity. If activity was not attempted, code reason: 7-Patient Refused. 9-Not Applicable-not attempted and the patient did not perform the activity before the current illness, exacerbation or injury. 10-Not Attempted due to Environmental Limitations-(lack of equipment, weather restraints, etc.). 88-Not Attempted due to Medical Conditions or Safety Concerns. Roll Left & Right (QC): 6 Sit to Lying (QC): 6 Lying to Sitting/Side of Bed(Q: 6 Sit to Stand (QC): 6 Chair/Vqh-ku-Sjbqq Xfer(QC): 6 Weight Bearing Right Lower Extremity: Right Full Weight Bearing Left Lower Extremity: Left Full Weight Bearing Gait Training Does the Patient Walk?: Yes Distance: 500 feet Walk 10 feet (QC): 6 Walk 50 ft with 2 Turns(QC): 6 Walk 150 ft (QC): 6 Gait Assistive Device: None Assessment Current Status: Excellent Progress Patient performs all bed mobility and transfers with independence. Patient ambulates 500 feet with no AD. Patient demonstrates a forward trunk, rounded shoulders and accentuated thoracic kyphosis posture, however this appears to be his baseline posture and gait pattern. Patient in chair post treatment with all needs met, nursing notified, call light in reach and in the room. PT Glass Smoother Goals Glass Smoother Goals PT Usp Goals Time Frame: Jan 27, 2023 Roll Left & Right (QC): 6 Sit to Lying (QC): 6 Lying-Sitting on Side/Bed(QC): 6 Sit to Stand (QC): 6 Chair/Npj-ct-Avydh Xfer(QC): 6 Toilet Transfer (QC): 6 Does the Patient Walk: Yes Walk 10 feet (QC): 6 Walk 50ft with 2 Turns (QC): 6 Walk 150 ft (QC): 6 1 Step (curb) (QC): 4 4 Steps (QC): 4 12 Steps (QC): 4 PT Plan Treatment/Plan Treatment Plan: Continue Plan of Care Treatment Plan: Bed Mobility, Education, Functional Activity Alison, Functional Strength, Group Therapy, Gait, Safety, Therapeutic Exercise, Transfers Treatment Duration: Jan 27, 2023 Frequency: 6 times per week Estimated Hrs Per Day: .25 hour per day Patient and/or Family Agrees t: Yes Safety Risks/Education Patient Education: Gait Training, Transfer Techniques Teaching Recipient: Patient, Family Teaching Methods: Demonstration, Discussion Response to Teaching: Verbalize Understanding, Return Demonstration Time Time In: 950 Time Out: 1000 DATE: Dec 29, 2022 Total Billed Treatment Time: 10 Total Billed Treatment Visit, Gait. MARIEL HANCOCK PT Dec 29, 2022 11:02
[2022-12-29 11:30] VITALS: BP 150/70
[2022-12-29] MEDS ORDERED: polyethylene glycoL POWDER 17 GM (MIRALAX) PACK PO NR (11:30)
[2022-12-29] MEDS: ALLOPURINOL 100 MG (ZYLOPRIM) TAB PO SCH (11:35)
[2022-12-29] MEDS: MEROPENEM 1,000 MG in NS (IVPB) 100 ML IV SCH ×2 (11:35→20:29)
[2022-12-29] MEDS: FINASTERIDE (PROSCAR) 5 MG TAB PO SCH (11:35)
[2022-12-29] MEDS: ENOXAPARIN 40 MG/0.4 ML (LOVENOX) SYR SC SCH (11:35)
--- NOTE | 2022-12-29 13:18 | Progress Note ---
GUSTAVO SUÁREZ 12/29/22 1318: Subjective Date Seen by a Provider: Dec 29, 2022 Time Seen by a Provider: 08:15 Subjective/Events-last exam Pt. was awake sitting in bed alert and oriented when seen this morning. He reports feeling well and that he was able to get up and walk the halls yesterday. He continues to have a ramon catheter in place with clear yellow urine in his ramon bag which appears better than yesterday. His Cr has improved to 1.19 this morning from 1.48 yesterday and 1.99 in the ED. His WBC remains in normal limits. Of note, his Preliminary blood cultures have returned Gram (-) bacili in both samples as well as Seratia marcescens in his urine He denies fevers, chills, CP, palpitations, SOB, abd pain, or new pain in his arms or legs. Review of Systems General: No Chills, No Fatigue HEENT: No Head Aches, No Visual Changes Pulmonary: No Dyspnea, No Cough Cardiovascular: No: Chest Pain, Palpitations Gastrointestinal: No: Nausea, Vomiting, Abdominal Pain Genitourinary: Other (ramon in place) Neurological: No: Weakness, Numbness Focused Exam Lactate Level 12/27/22 19:35: Lactic Acid Level 1.63 Objective Exam Last Set of Vital Signs Vital Signs Date Time Temp Pulse Resp B/P (MAP) Pulse Ox O2 Delivery O2 Flow Rate FiO2 12/29/22 12:43 67 12/29/22 11:30 36.9 18 150/70 (96) 96 Room Air 12/27/22 22:11 21 Capillary Refill : I&O Intake and Output 12/28/22 23:59 Intake Total 4640 ml Output Total 5850 ml Balance -1210 ml Intake Oral 2590 ml IV Total 2050 ml Output Urine Total 5850 ml General: Alert, Oriented X3, No Acute Distress HEENT: Atraumatic, EOMI Lungs: Clear to Auscultation, Normal Air Movement Heart: Regular Rate, Other (Systolic ejection murmur heard loudest on left side, unchanged from yesterday) Abdomen: Normal Bowel Sounds, Soft, No Tenderness Extremities: No Clubbing, No Cyanosis, No Edema Skin: No Rashes, No Breakdown, No Significant Lesion Neuro: Normal Gait, Normal Speech, Normal Tone, Sensation Intact Results Lab Laboratory Tests 12/28/22 15:29: Glucometer 238H 12/28/22 20:14: Glucometer 175H 12/29/22 05:10: White Blood Count 8.6, Red Blood Count 4.38, Hemoglobin 12.5L, Hematocrit 38L, Mean Corpuscular Volume 87, Mean Corpuscular Hemoglobin 29, Mean Corpuscular Hemoglobin Concent 33, Red Cell Distribution Width 14.3, Platelet Count 131, Mean Platelet Volume 9.4, Immature Granulocyte % (Auto) 2, Neutrophils (%) (Auto) 69, Lymphocytes (%) (Auto) 17, Monocytes (%) (Auto) 11, Eosinophils (%) (Auto) 1, Basophils (%) (Auto) 1, Neutrophils # (Auto) 5.9, Lymphocytes # (Auto) 1.4, Monocytes # (Auto) 1.0, Eosinophils # (Auto) 0.1, Basophils # (Auto) 0.1, Immature Granulocyte # (Auto) 0.2H, Sodium Level 135, Potassium Level 3.5L, Chloride Level 100, Carbon Dioxide Level 24, Anion Gap 11, Blood Urea Nitrogen 27H, Creatinine 1.19, Estimat Glomerular Filtration Rate 62, BUN/Creatinine Ratio 23, Glucose Level 146H, Calcium Level 9.2, Corrected Calcium 9.7, Total Bilirubin 0.6, Aspartate Amino Transf (AST/SGOT) 20, Alanine Aminotransferase (ALT/SGPT) 20, Alkaline Phosphatase 64, Total Protein 6.3L, Albumin 3.4 12/29/22 05:34: Glucometer 139H 12/29/22 10:48: Glucometer 274H Microbiology 12/27/22 Blood Culture - Preliminary, Resulted Gram Negative Alli 12/27/22 Urine Culture - Final, Complete Serratia marcescens Assessment/Plan Assessment/Plan Assess & Plan/Chief Complaint Sepsis secondary to complicated UTI -(12/28) SIRS (+) with fever, tachycardia, and urinalysis findings. Fever and Tachycardia since improved. -(12/29) Urine (+) for Seratia marcescens. Will switch abx from caftriaxone to Meropenem 1g Q8hr for better coverage while sensitivities are pending. Bacteremia -Gram (-) Bacilli in initial blood cultures. Abx updated as above out of caution. WBC remain within normal limits and patient is feeling well. Will monitor. Enlarged Prostate -started patient on finasteride 5mg PO QD from home medications JESSY -Cr on admission 1.99. Improved to 1.19 as of 12/29. Per chart review, 1.34 on 11/19/22 so unclear what true baseline is. -IVF held yesterday as patient is eating and drinking well and labs are continuing to improve. IDDM -Insulin sliding Scale C. Metformin Held HTN -upper end of normal with home meds. If BP continues to be elevate then will consider adding Hydralazine 10mg PO PRN for systolic >160 mmHg. Hyperlipidemia -Restart home meds SHAYE -Encouraged patient to have his CPAP brought in if able to use overnight Systolic Ejection Murmur -Sees Dr. Rajan. Had stress test on 09/13/22 with good exercise tolerance and estimated LVEF of 65% at that time per report. Uncertain when/if patient has had an echocardiogram. DVT proph: Lovenox Diet: as tolerated Clinical Quality Measures Admission Status Admission Dx Sepsis secondary to complicated UTI -SIRS (+) with fever, tachycardia, and urinalysis findings. Fever and Tachycardia since improved. -Ceftriaxone 1g IV Q24hr & IVF for complicated UTI while culture and sensitivity is pending Enlarged Prostate -Likely BPH. It sounds like patient was started on a 5-THEODORE class medication by urologist at [facility] last week as he was told his prostate may shrink in size after taking it for a year. -Will include in in-patient medications once it is identified which one he has been taking. JESSY -Cr on admission 1.99. Improved to 1.48 as of 12/28. Per chart review, 1.34 on 11/19/22 as possible baseline. -IVF and monitor IDDM -Insulin sliding Scale C. Hold Metformin. HTN -Restart home meds. If BP continues to be elevated then will consider adding Hydralazine 10mg PO PRN for systolic >160 mmHg. Hyperlipidemia -Restart home meds SHAYE -Encouraged patient to have his CPAP brought in if able to use overnight Systolic Ejection Murmur -Sees Dr. Rajan. Had stress test on 09/13/22 with good exercise tolerance and estimated LVEF of 65% at that time per report. Uncertain when/if patient has had an echocardiogram. DVT proph: Lovenox Diet: as tolerated BRITTANY MUÑOZ DO 12/30/22 0628: Supervisory-Addendum Brief Verification & Attestation Participated in pt care: history, MDM, physical Personally performed: exam, history, MDM, supervision of care Care discussed with: Medical Student Procedures: n/a Results interpretation: Verified all documentation Verification and Attestation of Medical Student E/M Service A medical student performed and documented this service in my presence. I reviewed and verified all information documented by the medical student and made modifications to such information, when appropriate. I personally performed the physical exam and medical decision making. Brittany Muñoz, Dec 30, 2022,06:28 GUSTAVO SUÁREZ Dec 29, 2022 13:18 BRITTANY MUÑOZ DO Dec 30, 2022 06:28
--- NOTE | 2022-12-29 15:20 | Consultation-Cardiology ---
HPI-Cardiology Cardiology Consultation: Date of Consultation 12/29/22 Date of Admission Attending Physician Brittany Taylor DO Admitting Physician Admitting Physician: Brittany Taylor DO Attending Physician: Brittany Taylor DO Consulting Physician ISAURA HERNANDEZ Review of Systems-Cardiology All Other Systems Reviewed Negative Unless Noted: Yes FXL-Nvvqli-Qljqmr Hx Patient Social History Marrital Status: Employed/Student: retired Smoking Status: Never a Smoker 2nd Hand Smoke Exposure: No Have you traveled recently?: No Alcohol Use?: Yes Pt feels they are or have been: No Immunizations Up To Date Date of Pneumonia Vaccine: Oct 01, 2014 Date of Influenza Vaccine: Jun 25, 2017 Past Medical History PMH As described under Assessment. Allergies and Home Medications Allergies Coded Allergies: No Known Drug Allergies (Unverified , 03/15/22) Patient Home Medication List Allopurinol (Allopurinol) 100 Mg Tablet, 100 MG PO 1200, (Reported) Entered as Reported by: LUCIO MARTINI on 12/28/221136 Last Action: Continued Aspirin (Aspirin) 81 Mg Tab.chew, 81 MG PO HS, (Reported) Entered as Reported by: RUBEN MARINO on 03/15/22 152 Last Action: Continued Atorvastatin Calcium (Atorvastatin Calcium) 10 Mg Tablet, 10 MG PO HS, (Reported) Entered as Reported by: RUBEN MARINO on 11/13/22 1607 Last Action: Continued Brimonidine Tartrate (Brimonidine Tartrate) 0.2 % Btl, 1 DROP OS BID, (Reported) Entered as Reported by: LUCIO MARTINI on 12/28/221136 Last Action: Continued Calcium Carbonate (Calcium) 600 Mg Calcium (1500 Mg) Tablet, 600 MG PO DAILY, (Reported) Entered as Reported by: LUCIO MARTINI on 12/28/221136 Last Action: Continued Chlorthalidone (Chlorthalidone) 25 Mg Tablet, 25 MG PO DAILY, (Reported) Entered as Reported by: LUCIO MARTINI on 12/28/221136 Last Action: Converted Famotidine (Acid Route Relief Driver (FAMOTIDINE)) 20 Mg Tablet, 20 MG PO HS, (Reported) Entered as Reported by: RUBEN MARINO on 03/15/22 1526 Last Action: Continued Finasteride (Finasteride) 5 Mg Tablet, 5 MG PO 1200, (Reported) Entered as Reported by: LUCIO MARTINI on 12/28/221136 Last Action: Continued Fish Oil/Dha/Epa (Fish Oil 1,200 mg Fish Oil) 1,200 Mg-144 Mg-216 Mg Capsule, 1 EACH PO BID, (Reported) Entered as Reported by: LUCIO MARTINI on 12/28/221136 Last Action: Converted Indomethacin (Indomethacin) 25 Mg Capsule, 25 MG PO TID PRN for GOUT PAIN, (Reported) Entered as Reported by: LUCIO MARTINI on 12/28/221138 Last Action: Continued Insulin Aspart (Novolog Flexpen) 100 Unit/Ml (3 Ml) Solution, 7 UNITS SQ BIDAC, (Reported) Entered as Reported by: RUBEN MARINO on 03/15/221525 Last Action: Converted Insulin Detemir (Levemir Flextouch) 100 Unit/Ml (3 Ml) Insuln.pen, 23 UNIT SQ BID, (Reported) Entered as Reported by: RUBEN MARINO on 03/15/221525 Last Action: Held Lisinopril (Lisinopril) 20 Mg Tablet, 20 MG PO DAILY, (Reported) Entered as Reported by: LUCIO MARTINI on 12/28/221136 Last Action: Continued Metformin HCl (Metformin HCl) 1,000 Mg Tablet, 1,000 MG PO BID, (Reported) Entered as Reported by: LUCIO MARTINI on 12/28/221136 Last Action: Held Metoprolol Tartrate (Metoprolol Tartrate) 50 Mg Tablet, 50 MG PO BID, (Reported) Entered as Reported by: RUBEN MARINO on 03/15/221525 Last Action: Continued Multivitamin (Multivitamin) 1 Each Tablet, 1 EACH PO DAILY, (Reported) Entered as Reported by: LUCIO MARTINI on 12/28/221136 Last Action: Converted Testosterone Cypionate (Testosterone Cypionate) 200 Mg/Ml Vial, 200 MG IM MONTHLY, (Reported) Entered as Reported by: RUBEN MARINO on 03/15/221525 Last Action: Held Tirzepatide (Mounjaro) 7.5 Mg/0.5 Ml Pen.injctr, 7.5 MG SQ FRI, (Reported) Entered as Reported by: LUCIO MARTINI on 3/30/23 1137 Last Action: Converted Discontinued Medications Calcium Citrate/Vitamin D3 (Calcium Citrate - Vit D3 Tab) 1 Each Tablet, 1 EACH PO, (Reported) Discontinued Reason: Duplicate Order Entered as Reported by: PO DE LA PAZ on 08/07/121511 Last Action: Discontinued Chlorthalidone (Chlorthalidone) 25 Mg Tablet, 25 MG PO DAILY, (Reported) Discontinued Reason: Duplicate Order Entered as Reported by: PO DE LA PAZ on 08/07/121510 Last Action: Discontinued Hydrocodone/Acetaminophen (Hydrocodone-Acetamin 5-325 mg) 5 Mg-325 Mg Tablet, 1 TAB PO UD PRN for PAIN-MODERATE (5-7), (Reported) Discontinued Reason: Duplicate Order Entered as Reported by: RUBEN MARINO on 11/13/221606 Last Action: Discontinued Indomethacin (Indomethacin) 25 Mg Capsule, 25 MG PO UD, (Reported) Discontinued Reason: Duplicate Order Entered as Reported by: RUBEN MARINO on 03/15/22 152 Last Action: Discontinued Metformin Hcl (Glucophage) 500 Mg Tab, 1,000 MG PO BID, (Reported) Discontinued Reason: Duplicate Order Entered as Reported by: FELA QUINONEZ on 07/27/11 165 Last Action: Discontinued Multivitamin (Multi-Vitamin Daily) 1 Each Tablet, 1 EACH PO DAILY, (Reported) Discontinued Reason: Duplicate Order Entered as Reported by: PO DE LA PAZ on 08/07/121510 Last Action: Discontinued Rosamond 3 Polyunsat Fatty Acids (Fish Oil) 1,000 Mg Cap, 1,000 MG PO BID, (Reported) Discontinued Reason: Duplicate Order Entered as Reported by: PO DE LA PAZ on 08/07/121510 Last Action: Discontinued Tirzepatide (Mounjaro) 5 Mg/0.5 Ml Pen.injctr, 5 MG SQ WEEK, (Reported) Discontinued Reason: Duplicate Order Entered as Reported by: RUBEN MARINO on 11/13/221606 Last Action: Discontinued Tramadol HCl (Tramadol HCl) 50 Mg Tablet, 50 MG PO UD, (Reported) Discontinued Reason: Duplicate Order Entered as Reported by: RUBEN MARINO on 11/13/221606 Last Action: Discontinued [Lisinopril 20 Mg] , 20 MG DAILY, (Reported) Discontinued Reason: Duplicate Order Entered as Reported by: FELA QUINONEZ on 07/30/11 8073 Last Action: Discontinued Physical Exam-Cardiology Physical Exam Vital Signs/I&O 12/29/22 12/29/22 12/29/22 12/29/22 03:23 07:00 07:10 07:52 Temp 36.8 37.1 Pulse 61 61 66 Resp 18 18 B/P (MAP) 146/53 (84) 153/65 (94) Pulse Ox 95 95 97 O2 Delivery Room Air Room Air Room Air 12/29/22 12/29/22 12/29/22 08:00 11:30 12:43 Temp 36.9 Pulse 61 67 Resp 18 B/P (MAP) 150/70 (96) Pulse Ox 96 O2 Delivery Room Air Room Air 12/29/22 00:00 Intake Total 4340 ml Output Total 3850 ml Balance 490 ml Capillary Refill : Data Review Labs Laboratory Tests 12/28/22 15:29: Glucometer 238H 12/28/22 20:14: Glucometer 175H 12/29/22 05:10: White Blood Count 8.6, Red Blood Count 4.38, Hemoglobin 12.5L, Hematocrit 38L, Mean Corpuscular Volume 87, Mean Corpuscular Hemoglobin 29, Mean Corpuscular Hemoglobin Concent 33, Red Cell Distribution Width 14.3, Platelet Count 131, Mean Platelet Volume 9.4, Immature Granulocyte % (Auto) 2, Neutrophils (%) (Auto) 69, Lymphocytes (%) (Auto) 17, Monocytes (%) (Auto) 11, Eosinophils (%) (Auto) 1, Basophils (%) (Auto) 1, Neutrophils # (Auto) 5.9, Lymphocytes # (Auto) 1.4, Monocytes # (Auto) 1.0, Eosinophils # (Auto) 0.1, Basophils # (Auto) 0.1, Immature Granulocyte # (Auto) 0.2H, Sodium Level 135, Potassium Level 3.5L, Chloride Level 100, Carbon Dioxide Level 24, Anion Gap 11, Blood Urea Nitrogen 27H, Creatinine 1.19, Estimat Glomerular Filtration Rate 62, BUN/Creatinine Ratio 23, Glucose Level 146H, Calcium Level 9.2, Corrected Calcium 9.7, Total Bilirubin 0.6, Aspartate Amino Transf (AST/SGOT) 20, Alanine Aminotransferase (ALT/SGPT) 20, Alkaline Phosphatase 64, Total Protein 6.3L, Albumin 3.4 12/29/22 05:34: Glucometer 139H 12/29/22 10:48: Glucometer 274H Microbiology 12/27/22 Blood Culture - Preliminary, Resulted Serratia marcescens Susceptibility To Follow 12/27/22 Urine Culture - Final, Complete Serratia marcescens Laboratory Tests 12/27/22 19:35 12/28/22 05:15 12/29/22 05:10 A/P-Cardiology Assessment/Admission Diagnosis Stress test was done in May 2019 showing fair exercise tolerance for a total of 5 minutes 20 seconds on Abdon protocol, hypertensive response to exercise, diaphragmatic attenuation with typical male pattern with no ischemia or infarction, ejection fraction 61 percent. Continue to monitor Echocardiogram done in March 2021 showing normal LV size with EF 55 to 65%. Mildly dilated left atrium, very mild aortic valve stenosis with peak gradient 23 mmHg, mean gradient 12 mmHg, valve area 1.5 cm, PA pressure 30 to 35 mmHg. Mild aortic valve stenosis, asymptomatic. Last echo was done in March 2021. I will reevaluate 2D Echo. Hypertension, home blood pressure monitor showing good control. History of orthostatic dizziness and lightheadedness. improved since discontinuing Norvasc and changing atenolol to Toprol. No further episode. Continue to monitor Sinus rhythm with sinus arrhythmia and frequent atrial premature contractions. Holter monitor revealed sinus rhythm with occasional PAC, PVC. Episode of bradycardia with 2-3 second pause at 520 in the morning, asymptomatic while asleep. Hyperlipidemia, maintained on lipitor, lipid profile was done in August 2021 showing total cholesterol 147, HDL 43, triglyceride 203, LDL 63. Reporting recent lab work done with PCP, I will try to obtain a copy for our records. Mild bilateral carotid stenosis, ultrasound was done in January 2022. Diabetes mellitus, followed and managed by primary care physician, I will start patient on Mounjaro. History of bilateral knee surgeries, appendectomy, osteoarthritis. Obstructive sleep apnea, diagnosed October 2018, maintained on CPAP. Multiple risk factors for underlying CAD, no recent work up, I will evaluate EST, 2D echo, start ISAURA Joseph Dec 29, 2022 15:20
[2022-12-29 15:30] VITALS: BP 118/61
--- NOTE | 2022-12-29 16:08 | Consultation-Cardiology ---
HPI-Cardiology Cardiology Consultation: Date of Consultation 12/29/22 Time Seen by a Provider: 15:20 Date of Admission Attending Physician Brittany Taylor DO Admitting Physician Admitting Physician: Brittany Taylor DO Attending Physician: Brittany Taylor DO Consulting Physician MARIO DEVINE MD, MA, FACP, FACC, [facility] [place], CCDS Physician requesting consult: Dr Taylor Primary electroplating technician: Dr Rajan HPI: Chief Complaint: Reason for Card consult: Brief PSVT 77 yo man admitted to Dr Taylor with urinary obstruction and suprapubic discomfort who has also been found to have UTI and serratia bacteremia that Dr Taylor is treating. We have been asked to see him because he had an approximately 20-beat run of paroxysmal tachycardia yesterday. He does not report any palp or syncope or presyncope or swelling or shortness of breath or cp. Review of Systems-Cardiology Review of Systems Constitutional: malaise, tiredness; No weight loss, No weight gain Ears/Nose/Throat: No nasal drainage, No recent hearing loss, No ulcerations Respiratory: As described under HPI Cardiovascular: As described under HPI Gastrointestinal: No diarrhea, No nausea, No vomiting Genitourinary: dysuria, urine frequency changes Musculoskeletal: back pain (chronic); No joint pain Skin: No rash, No ulcerations Psychiatric/Neurological: No seizure, No focal weakness, No syncope Hematologic: No bleeding abnormalities All Other Systems Reviewed Negative Unless Noted: Yes JQE-Ibbzvm-Mvzvkv Hx Patient Social History Marrital Status: Employed/Student: retired Smoking Status: Never a Smoker 2nd Hand Smoke Exposure: No Have you traveled recently?: No Alcohol Use?: Yes Pt feels they are or have been: No Immunizations Up To Date Date of Pneumonia Vaccine: Oct 01, 2014 Date of Influenza Vaccine: Jun 25, 2017 Past Medical History PMH As described under Assessment. Family Medical History Family Medical History: He does not report fam h/o early CAD or SCD Allergies and Home Medications Allergies Coded Allergies: No Known Drug Allergies (Unverified , 03/15/22) Patient Home Medication List Home Medication List Reviewed: Yes Allopurinol (Allopurinol) 100 Mg Tablet, 100 MG PO 1200, (Reported) Entered as Reported by: LUCIO MARTINI on 12/28/22 6743 Last Action: Continued Aspirin (Aspirin) 81 Mg Tab.chew, 81 MG PO HS, (Reported) Entered as Reported by: RUBEN MARINO on 03/15/221525 Last Action: Continued Atorvastatin Calcium (Atorvastatin Calcium) 10 Mg Tablet, 10 MG PO HS, (Reported) Entered as Reported by: RUBEN MARINO on 11/13/221606 Last Action: Continued Brimonidine Tartrate (Brimonidine Tartrate) 0.2 % Btl, 1 DROP OS BID, (Reported) Entered as Reported by: LUCIO MARTINI on 12/28/221136 Last Action: Continued Calcium Carbonate (Calcium) 600 Mg Calcium (1500 Mg) Tablet, 600 MG PO DAILY, (Reported) Entered as Reported by: LUCIO MARTINI on 12/28/221136 Last Action: Continued Chlorthalidone (Chlorthalidone) 25 Mg Tablet, 25 MG PO DAILY, (Reported) Entered as Reported by: LUCIO MARTINI on 12/28/221136 Last Action: Converted Famotidine (Acid Sulfur Chloride Operator (FAMOTIDINE)) 20 Mg Tablet, 20 MG PO HS, (Reported) Entered as Reported by: RUBEN MARINO on 03/15/221525 Last Action: Continued Finasteride (Finasteride) 5 Mg Tablet, 5 MG PO 1200, (Reported) Entered as Reported by: LUCIO MARTINI on 12/28/221136 Last Action: Continued Fish Oil/Dha/Epa (Fish Oil 1,200 mg Fish Oil) 1,200 Mg-144 Mg-216 Mg Capsule, 1 EACH PO BID, (Reported) Entered as Reported by: LUCIO MARTINI on 12/28/221136 Last Action: Converted Indomethacin (Indomethacin) 25 Mg Capsule, 25 MG PO TID PRN for GOUT PAIN, (Reported) Entered as Reported by: LUCIO MARTINI on 12/28/221138 Last Action: Continued Insulin Aspart (Novolog Flexpen) 100 Unit/Ml (3 Ml) Solution, 7 UNITS SQ BIDAC, (Reported) Entered as Reported by: RUBEN MARINO on 03/15/221525 Last Action: Converted Insulin Detemir (Levemir Flextouch) 100 Unit/Ml (3 Ml) Insuln.pen, 23 UNIT SQ BID, (Reported) Entered as Reported by: RUBEN MARINO on 03/15/221525 Last Action: Held Lisinopril (Lisinopril) 20 Mg Tablet, 20 MG PO DAILY, (Reported) Entered as Reported by: LUCIO MARTINI on 12/28/221136 Last Action: Continued Metformin HCl (Metformin HCl) 1,000 Mg Tablet, 1,000 MG PO BID, (Reported) Entered as Reported by: LUCIO MARTINI on 12/28/221136 Last Action: Held Metoprolol Tartrate (Metoprolol Tartrate) 50 Mg Tablet, 50 MG PO BID, (Reported) Entered as Reported by: RUBEN MARINO on 03/15/221525 Last Action: Continued Multivitamin (Multivitamin) 1 Each Tablet, 1 EACH PO DAILY, (Reported) Entered as Reported by: LUCIO MARTINI on 12/28/221136 Last Action: Converted Testosterone Cypionate (Testosterone Cypionate) 200 Mg/Ml Vial, 200 MG IM MONTHLY, (Reported) Entered as Reported by: RUBEN MARINO on 03/15/221525 Last Action: Held Tirzepatide (Mounjaro) 7.5 Mg/0.5 Ml Pen.injctr, 7.5 MG SQ FRI, (Reported) Entered as Reported by: LUCIO MARTINI on 12/28/221136 Last Action: Converted Discontinued Medications Calcium Citrate/Vitamin D3 (Calcium Citrate - Vit D3 Tab) 1 Each Tablet, 1 EACH PO, (Reported) Discontinued Reason: Duplicate Order Entered as Reported by: PO DE LA PAZ on 08/07/121511 Last Action: Discontinued Chlorthalidone (Chlorthalidone) 25 Mg Tablet, 25 MG PO DAILY, (Reported) Discontinued Reason: Duplicate Order Entered as Reported by: PO DE LA PAZ on 08/07/12 151 Last Action: Discontinued Hydrocodone/Acetaminophen (Hydrocodone-Acetamin 5-325 mg) 5 Mg-325 Mg Tablet, 1 TAB PO UD PRN for PAIN-MODERATE (5-7), (Reported) Discontinued Reason: Duplicate Order Entered as Reported by: RUBEN MARINO on 11/13/22 1607 Last Action: Discontinued Indomethacin (Indomethacin) 25 Mg Capsule, 25 MG PO UD, (Reported) Discontinued Reason: Duplicate Order Entered as Reported by: RUBEN MARINO on 03/15/22 152 Last Action: Discontinued Metformin Hcl (Glucophage) 500 Mg Tab, 1,000 MG PO BID, (Reported) Discontinued Reason: Duplicate Order Entered as Reported by: FELA QUINONEZ on 07/27/11 1659 Last Action: Discontinued Multivitamin (Multi-Vitamin Daily) 1 Each Tablet, 1 EACH PO DAILY, (Reported) Discontinued Reason: Duplicate Order Entered as Reported by: PO DE LA PAZ on 08/07/121510 Last Action: Discontinued [place] 3 Polyunsat Fatty Acids (Fish Oil) 1,000 Mg Cap, 1,000 MG PO BID, (Reported) Discontinued Reason: Duplicate Order Entered as Reported by: PO DE LA PAZ on 08/07/121510 Last Action: Discontinued Tirzepatide (Mounjaro) 5 Mg/0.5 Ml Pen.injctr, 5 MG SQ WEEK, (Reported) Discontinued Reason: Duplicate Order Entered as Reported by: RUBEN MARINO on 11/13/221606 Last Action: Discontinued Tramadol HCl (Tramadol HCl) 50 Mg Tablet, 50 MG PO UD, (Reported) Discontinued Reason: Duplicate Order Entered as Reported by: RUBEN MARINO on 11/13/221606 Last Action: Discontinued [Lisinopril 20 Mg] , 20 MG DAILY, (Reported) Discontinued Reason: Duplicate Order Entered as Reported by: FELA QUINONEZ on 07/30/11 1255 Last Action: Discontinued Physical Exam-Cardiology Physical Exam Vital Signs/I&O 12/29/22 12/29/22 12/29/22 12/29/22 07:00 07:10 07:52 08:00 Temp 37.1 Pulse 61 66 Resp 18 B/P (MAP) 153/65 (94) Pulse Ox 95 97 O2 Delivery Room Air Room Air Room Air 12/29/22 12/29/22 12/29/22 11:30 12:43 15:30 Temp 36.9 37.1 Pulse 61 67 64 Resp 18 18 B/P (MAP) 150/70 (96) 118/61 (80) Pulse Ox 96 93 O2 Delivery Room Air Room Air 12/29/22 00:00 Intake Total 4340 ml Output Total 3850 ml Balance 490 ml Capillary Refill : Constitutional: AAO x 3, well-developed, well-nourished HEENT: PERRL, EOMI, hearing is well preserved; No xanthelasmas are seen Neck: No carotid bruit; carotid pulses are 2 + bilaterally, with good upstrokes Respiratory: No accessory muscle use; chest expansion is symmetric, chest is bilaterally symmetric, other (fair to good, bilateral air entry) Cardiovascular: regular rate-rhythm, S1 and S2, systolic murmur (2-3/6 MSM) Gastrointestinal: No tender; soft; No guarding, No rebound; audible bowel sounds Extremities: No clubbing, No cyanosis, No significant edema Neurologic/Psychiatric: oriented x 3, other (moves all limbs ) Skin: No rash on exposed areas, No ulcerations on exposed areas Data Review Labs Laboratory Tests 12/28/22 20:14: Glucometer 175H 12/29/22 05:10: White Blood Count 8.6, Red Blood Count 4.38, Hemoglobin 12.5L, Hematocrit 38L, Mean Corpuscular Volume 87, Mean Corpuscular Hemoglobin 29, Mean Corpuscular Hemoglobin Concent 33, Red Cell Distribution Width 14.3, Platelet Count 131, Mean Platelet Volume 9.4, Immature Granulocyte % (Auto) 2, Neutrophils (%) (Auto) 69, Lymphocytes (%) (Auto) 17, Monocytes (%) (Auto) 11, Eosinophils (%) (Auto) 1, Basophils (%) (Auto) 1, Neutrophils # (Auto) 5.9, Lymphocytes # (Auto) 1.4, Monocytes # (Auto) 1.0, Eosinophils # (Auto) 0.1, Basophils # (Auto) 0.1, Immature Granulocyte # (Auto) 0.2H, Sodium Level 135, Potassium Level 3.5L, Chloride Level 100, Carbon Dioxide Level 24, Anion Gap 11, Blood Urea Nitrogen 27H, Creatinine 1.19, Estimat Glomerular Filtration Rate 62, BUN/Creatinine Ratio 23, Glucose Level 146H, Calcium Level 9.2, Corrected Calcium 9.7, Total Bilirubin 0.6, Aspartate Amino Transf (AST/SGOT) 20, Alanine Aminotransferase (ALT/SGPT) 20, Alkaline Phosphatase 64, Total Protein 6.3L, Albumin 3.4 12/29/22 05:34: Glucometer 139H 12/29/22 10:48: Glucometer 274H Microbiology 12/27/22 Blood Culture - Preliminary, Resulted Serratia marcescens Susceptibility To Follow 12/27/22 Urine Culture - Final, Complete Serratia marcescens Laboratory Tests 3/29/23 19:35 12/28/22 05:15 12/29/22 05:10 A/P-Cardiology Assessment/Admission Diagnosis Urinary obstruction, UTI, and sepsis (serratia bacteremia) leading to this admission - managed by Dr Taylor SVT, asymptomatic, approx 20 beat run at approx 5 pm on 12/28/22 H/o sinus arrhythmia and PVCs and PACs Chronic bundle branch block Mild aortic stenosis - Echocardiogram done in March 2021 showing normal LV size with EF 55 to 65%. Mildly dilated left atrium, very mild aortic valve stenosis with peak gradient 23 mmHg, mean gradient 12 mmHg, valve area 1.5 cm, PA pressure 30 to 35 mmHg. Hypertension Hyperlipidemia - treated with statin Mild bilateral carotid stenosis on ultrasound was done in January 2022. Diabetes mellitus II, insulin requiring - managed by Dr Taylor History of bilateral knee surgeries, appendectomy H/o prostate enlargement Obstructive sleep apnea, diagnosed October 2018 - treated with CPAP. Multiple risk factors for underlying CAD - MPI in Aug 2022 (Dr Rajan): Baseline right bundle branch block with nondiagnostic EKG changes with exercise return to baseline during recovery. No significant ischemia or infarction noted on SPECT images. Normal left ventricular size, ejection fraction 65% Discussion and Recomendations * Echo * ECG * Treat with beta-loly * Monitor labs MARIO DEVINE MD FACP FAC CCDS Dec 29, 2022 16:08
[2022-12-29] MEDS ORDERED: KCL 20 MEQ TAB (K-DUR) PO NR (16:30)
[2022-12-29 20:19] VITALS: BP 115/60
[2022-12-29] MEDS: AtorvaSTATin TABLET 10 MG TABLET PO SCH (20:29)
[2022-12-29] MEDS: FAMOTIDINE 20 MG (PEPCID) TABLET PO SCH (20:29)
[2022-12-29 23:39] VITALS: BP 116/69
[2022-12-30 03:41] VITALS: BP 133/75
[2022-12-30] MEDS: MEROPENEM 1,000 MG in NS (IVPB) 100 ML IV SCH ×2 (04:43→11:48)
[2022-12-30] MEDS: MULTIVIT W/MINERALS TAB (THERAGRAN M) PO SCH (05:13)
[2022-12-30] MEDS: inSUlin ASPART (NovoLOG) 1 UNIT/0.01 ML (CHARGE PER UNIT) SC SCH ×3 (05:29→11:48)
[2022-12-30 05:34] LABS: BASOPHILS % (AUTO) 1 % (0-10); EOSINOPHILS # (AUTO) 0.2 10^3/uL (0.0-0.3); EOSINOPHILS % (AUTO) 2 % (0-10); HEMATOCRIT 38 % (40-54); HEMOGLOBIN 12.5 g/dL (13.3-17.7); LYMPHOCYTES # (AUTO) 1.5 10^3/uL (1.0-4.0); LYMPHOCYTES % (AUTO) 19 % (12-44); MEAN CORPUSCULAR HEMOGLOBIN 29 pg (25-34); MEAN CORPUSCULAR HGB CONC 33 g/dL (32-36); MEAN CORPUSCULAR VOLUME 87 fL (80-99); MEAN PLATELET VOLUME 9.1 fL (9.0-12.2); MONOCYTES % (AUTO) 12 % (0-12); NEUTROPHILS # (AUTO) 5.2 10^3/uL (1.8-7.8); NEUTROPHILS % (AUTO) 64 % (42-75); PLATELET COUNT 146 10^3/uL (130-400); WHITE BLOOD COUNT 8.1 10^3/uL (4.3-11.0)
[2022-12-30 05:44] LABS: ALBUMIN 3.2 GM/DL (3.2-4.5); BILIRUBIN,TOTAL 0.6 MG/DL (0.1-1.0); CALCIUM 9.2 MG/DL (8.5-10.1); CREATININE SERUM 1.2 MG/DL (0.60-1.30); POTASSIUM 3.6 MMOL/L (3.6-5.0); TOTAL PROTEIN 6.1 GM/DL (6.4-8.2)
[2022-12-30 07:16] VITALS: BP 150/83
--- NOTE | 2022-12-30 07:22 | Progress Note ---
Subjective Date Seen by a Provider: Dec 30, 2022 Time Seen by a Provider: 11:00 Focused Exam Lactate Level 12/27/22 19:35: Lactic Acid Level 1.63 Objective Exam Last Set of Vital Signs Vital Signs Date Time Temp Pulse Resp B/P (MAP) Pulse Ox O2 Delivery O2 Flow Rate FiO2 12/30/22 07:16 37.3 66 18 150/83 (105) 95 Room Air 12/27/22 22:11 21 Capillary Refill : I&O Intake and Output 12/30/22 00:00 Intake Total 1840 ml Output Total 3625 ml Balance -1785 ml Intake Oral 1740 ml IV Total 100 ml Output Urine Total 3625 ml Results Lab Laboratory Tests 12/29/22 10:48: Glucometer 274H 12/29/22 20:21: Glucometer 177H 12/30/22 04:59: White Blood Count 8.1, Red Blood Count 4.34, Hemoglobin 12.5L, Hematocrit 38L, Mean Corpuscular Volume 87, Mean Corpuscular Hemoglobin 29, Mean Corpuscular Hemoglobin Concent 33, Red Cell Distribution Width 14.4, Platelet Count 146, Mean Platelet Volume 9.1, Immature Granulocyte % (Auto) 2, Neutrophils (%) (Auto) 64, Lymphocytes (%) (Auto) 19, Monocytes (%) (Auto) 12, Eosinophils (%) (Auto) 2, Basophils (%) (Auto) 1, Neutrophils # (Auto) 5.2, Lymphocytes # (Auto) 1.5, Monocytes # (Auto) 1.0, Eosinophils # (Auto) 0.2, Basophils # (Auto) 0.0, Immature Granulocyte # (Auto) 0.1, Sodium Level 133L, Potassium Level 3.6, Chloride Level 97L, Carbon Dioxide Level 25, Anion Gap 11, Blood Urea Nitrogen 25H, Creatinine 1.20, Estimat Glomerular Filtration Rate 62, BUN/Creatinine Ratio 21, Glucose Level 132H, Calcium Level 9.2, Corrected Calcium 9.8, Total Bilirubin 0.6, Aspartate Amino Transf (AST/SGOT) 23, Alanine Aminotransferase (ALT/SGPT) 23, Alkaline Phosphatase 63, Total Protein 6.1L, Albumin 3.2 12/30/22 05:26: Glucometer 139H Microbiology 12/27/22 Blood Culture - Preliminary, Resulted Serratia marcescens Susceptibility To Follow 12/27/22 Urine Culture - Final, Complete Serratia marcescens Clinical Quality Measures Admission Status Admission Dx CLIVE MUÑOZ DO Dec 30, 2022 07:22
[2022-12-30] MEDS: CALCIUM CARBONATE 600 MG (CALCARB) TAB PO SCH (08:14)
[2022-12-30] MEDS: OMEGA 3 (FISH OIL) 1000 MG CAP PO SCH (08:14)
[2022-12-30] MEDS: DOCUSATE SODIUM 100 MG (COLACE) CAP PO SCH (08:14)
[2022-12-30] MEDS: lisINopril 20 MG (PRINIVIL) TABLET PO SCH (08:14)
[2022-12-30] MEDS: SENNOSIDES 8.6 MG (SENOKOT) TAB PO SCH (08:14)
[2022-12-30] MEDS: meTOprolol TARTRATE 50 MG (LOPRESSOR) TAB PO SCH (08:14)
[2022-12-30] MEDS: BRIMONIDINE 0.2% (ALPHAGAN) OPHTH SOLN 5 ML BTL OS SCH (08:15)
[2022-12-30] MEDS ORDERED: PATIENT MAY USE OWN MED,SINGLE MED PO SCH (09:00)
[2022-12-30] MEDS ORDERED: [UNRECOGNIZED DRUG - REMARK] PO SCH (09:00)
--- NOTE | 2022-12-30 09:13 | Physical Therapy Daily Note ---
PT Daily Note-Current Subjective States that he is feeling good. Pain Section J - Health Conditions 1. Rarely or not at all 2. Occasionally 3. Frequently 4. Almost constantly 8. Unable to answer Pain Effect on Sleep: 1 Pain Interference with Therapy: 1 Pain Interference w/Day-to-Day: 1 Transfers SCALE: Activities may be completed with or without assistive devices. 6-Axstonhkij-lhjxavs completes the activity by him/herself with no assistance from a helper. 5-Set-up or Clean-up Assistance-helper sets up or cleans up; patient completes activity. [place] assists only prior to or following the activity. 4-Supervision or Touching Assistance-helper provides verbal cues and/or touching/steadying and/or contact guard assistance as patient completes activity. Assistance may be provided throughout the activity or intermittently. 3-Partial/Moderate Assistance-helper does LESS THAN HALF the effort. [place] lifts, holds or supports trunk or limbs, but provides less than half the effort. 2-Substantial/Maximal Assistance-helper does MORE THAN HALF the effort. [place] lifts or holds trunk or limbs and provides more than half the effort. 4-Rjtttfhfi-ehvpnh does ALL the effort. Patient does none of the effort to complete the activity. Or, the assistance of 2 or more helpers is required for the patient to complete the activity. If activity was not attempted, code reason: 7-Patient Refused. 9-Not Applicable-not attempted and the patient did not perform the activity before the current illness, exacerbation or injury. 10-Not Attempted due to Environmental Limitations-(lack of equipment, weather restraints, etc.). 88-Not Attempted due to Medical Conditions or Safety Concerns. Sit to Lying (QC): 5 Lying to Sitting/Side of Bed(Q: 5 Sit to Stand (QC): 5 Weight Bearing Right Lower Extremity: Right Full Weight Bearing Left Lower Extremity: Left Full Weight Bearing Gait Training Distance: 1000' Walk 10 feet (QC): 5 Walk 50 ft with 2 Turns(QC): 5 Walk 150 ft (QC): 5 Gait Persons Needed: 1 Gait Assistive Device: None Assessment Current Status: Excellent Progress Patient doing very well. PT [facility] Goals District Manager Goals PT District Manager Goals Time Frame: Jan 27, 2023 Roll Left & Right (QC): 6 Sit to Lying (QC): 6 Lying-Sitting on Side/Bed(QC): 6 Sit to Stand (QC): 6 Chair/Kju-zs-Xkltd Xfer(QC): 6 Toilet Transfer (QC): 6 Does the Patient Walk: Yes Walk 10 feet (QC): 6 Walk 50ft with 2 Turns (QC): 6 Walk 150 ft (QC): 6 1 Step (curb) (QC): 4 4 Steps (QC): 4 12 Steps (QC): 4 PT Plan Treatment/Plan Treatment Plan: Continue Plan of Care Treatment Plan: Bed Mobility, Education, Functional Activity Alison, Functional Strength, Group Therapy, Gait, Safety, Therapeutic Exercise, Transfers Treatment Duration: Jan 27, 2023 Frequency: 6 times per week Estimated Hrs Per Day: .25 hour per day Patient and/or Family Agrees t: Yes Time Time In: 899 Time Out: 909 DATE: Dec 30, 2022 Total Billed Treatment Time: 10 Total Billed Treatment 1, GT x 10' HALIMA DOTSON PT Dec 30, 2022 09:13
[2022-12-30 11:05] VITALS: BP 131/72
[2022-12-30] MEDS: ALLOPURINOL 100 MG (ZYLOPRIM) TAB PO SCH (11:41)
[2022-12-30] MEDS: FINASTERIDE (PROSCAR) 5 MG TAB PO SCH (11:41)
[2022-12-30] MEDS ORDERED: BISACODYL 10 MG SUPP (DULCOLAX) PR ONE (11:45)
[2022-12-30] MEDS ORDERED: LACTULOSE SYRUP 10GM/15ML (ENULOSE) 30ML UDC PO ONE (11:45)
[2022-12-30] MEDS: ENOXAPARIN 40 MG/0.4 ML (LOVENOX) SYR SC SCH (11:48)
[2022-12-30] MEDS ORDERED: CEFD300C3 PO (11:52)
--- NOTE | 2022-12-30 11:55 | Discharge Summary ---
Diagnosis/Chief Complaint Date of Admission Dec 27, 2022 at 21:20 Date of Discharge Discharge Date: Dec 30, 2022 Discharge Diagnosis Sepsis secondary to complicated UTI -SIRS (+) with fever, tachycardia, and urinalysis findings. Fever and Tachycardia since improved. -Ceftriaxone 1g IV Q24hr & IVF for complicated UTI while culture and sensitivity is pending Enlarged Prostate -Likely BPH. It sounds like patient was started on a 5-THEODORE class medication by urologist at [facility] last week as he was told his prostate may shrink in size after taking it for a year. -Will include in in-patient medications once it is identified which one he has been taking. JESSY -Cr on admission 1.99. Improved to 1.48 as of 12/28. Per chart review, 1.34 on 11/19/22 as possible baseline. -IVF and monitor IDDM -Insulin sliding Scale C. Hold Metformin. HTN -Restart home meds. If BP continues to be elevated then will consider adding Hydralazine 10mg PO PRN for systolic >160 mmHg. Hyperlipidemia -Restart home meds SHAYE -Encouraged patient to have his CPAP brought in if able to use overnight Systolic Ejection Murmur -Sees Dr. Rajan. Had stress test on 09/13/22 with good exercise tolerance and estimated LVEF of 65% at that time per report. Uncertain when/if patient has had an echocardiogram. DVT proph: Lovenox Diet: as tolerated Discharge Summary Discharge Physical Examination Allergies: Coded Allergies: No Known Drug Allergies (Unverified , 03/15/22) Vitals & I&Os Vital Signs Date Time Temp Pulse Resp B/P (MAP) Pulse Ox O2 Delivery O2 Flow Rate FiO2 12/30/22 13:50 12/30/22 11:05 37.2 62 18 95 Room Air 12/27/22 22:11 21 General Appearance: Alert, Oriented X3, Cooperative Respiratory: Clear to Auscultation Cardiovascular: Regular Rate Psych/Mental Status: Mental Status NL Hospital Course Was the Problem List Reviewed?: Yes Brief course after admitted for urinary retention requiring cath placement and 1200cc UOP immediately so patient was placed on gentle IVF and Rocephin and monitored closely. Home meds were restarted with insulin. BCx returned Serratia and sensitivity noted and patient was deemed stable for DC on PO Cefdinir after Dr Mcintyre evaluated ECHO. Urology appt for 01/09/23 secured and I will see him in my clinic next week and catheter will remain in place Labs (last 24 hrs) Laboratory Tests 12/27/22 19:25: Urine Color YELLOW, Urine Clarity CLOUDY, Urine pH 5.5, Urine Specific [place] 1.015L, Urine Protein 1+H, Urine Glucose (UA) 2+H, Urine Ketones NEGATIVE, Urine Nitrite POSITIVEH, Urine Bilirubin NEGATIVE, Urine Urobilinogen 0.2, Urine Leukocyte Esterase 2+H, Urine RBC (Auto) 3+H, Urine RBC RARE, Urine WBC TNTCH, Urine Squamous Epithelial Cells NONE, Urine Crystals NONE, Urine Bacteria LARGEH , Urine Casts NONE, Urine Mucus NEGATIVE, Urine Culture Indicated YES 12/27/22 19:35: White Blood Count 8.8, Red Blood Count 4.62, Hemoglobin 13.5, Hematocrit 40, Mean Corpuscular Volume 87, Mean Corpuscular Hemoglobin 29, Mean Corpuscular Hemoglobin Concent 34, Red Cell Distribution Width 14.3, Platelet Count 154, Mean Platelet Volume 9.2, Immature Granulocyte % (Auto) 1, Neutrophils (%) (Auto) 77H, Lymphocytes (%) (Auto) 9L, Monocytes (%) (Auto) 12, Eosinophils (%) (Auto) 1, Basophils (%) (Auto) 1, Neutrophils # (Auto) 6.7, Lymphocytes # (Auto) 0.8L, Monocytes # (Auto) 1.1H, Eosinophils # (Auto) 0.1, Basophils # (Auto) 0.1, Immature Granulocyte # (Auto) 0.1, Sodium Level 134L, Potassium Level 4.2, Chloride Level 98, Carbon Dioxide Level 23, Anion Gap 13, Blood Urea Nitrogen 48H, Creatinine 1.99H, Estimat Glomerular Filtration Rate 34, BUN/Creatinine Ratio 24, Glucose Level 316H, Lactic Acid Level 1.63, Calcium Level 10.3H, Corrected Calcium 10.3H, Total Bilirubin 0.8, Aspartate Amino Transf (AST/SGOT) 25, Alanine Aminotransferase (ALT/SGPT) 23, Alkaline Phosphatase 73, C-Reactive Protein High Sensitivity 7.84H, Total Protein 7.1, Albumin 4.0 12/27/22 22:16: Glucometer 266H 12/28/22 05:14: Glucometer 272H 12/28/22 05:15: White Blood Count 8.6, Red Blood Count 4.36, Hemoglobin 12.7L, Hematocrit 38L, Mean Corpuscular Volume 87, Mean Corpuscular Hemoglobin 29, Mean Corpuscular Hemoglobin Concent 34, Red Cell Distribution Width 14.2, Platelet Count 142, Mean Platelet Volume 9.5, Immature Granulocyte % (Auto) 1, Neutrophils (%) (Auto) 78H, Lymphocytes (%) (Auto) 8L, Monocytes (%) (Auto) 13H, Eosinophils (%) (Auto) 0, Basophils (%) (Auto) 1, Neutrophils # (Auto) 6.7, Lymphocytes # (Auto) 0.7L, Monocytes # (Auto) 1.1H, Eosinophils # (Auto) 0.0, Basophils # (Auto) 0.0, Immature Granulocyte # (Auto) 0.1, Sodium Level 134L, Potassium Level 3.8, Chloride Level 100, Carbon Dioxide Level 23, Anion Gap 11, Blood Urea Nitrogen 35H, Creatinine 1.48H, Estimat Glomerular Filtration Rate 48, BUN/Creatinine Ratio 24, Glucose Level 261H, Calcium Level 9.4, Corrected Calcium 9.8, Total Bilirubin 0.8, Aspartate Amino Transf (AST/SGOT) 20, Alanine Aminotransferase (ALT/SGPT) 22, Alkaline Phosphatase 64, Total Protein 6.5, Albumin 3.5 12/28/22 11:12: Glucometer 260H 12/28/22 15:29: Glucometer 238H 12/28/22 20:14: Glucometer 175H 12/29/22 05:10: White Blood Count 8.6, Red Blood Count 4.38, Hemoglobin 12.5L, Hematocrit 38L, Mean Corpuscular Volume 87, Mean Corpuscular Hemoglobin 29, Mean Corpuscular Hemoglobin Concent 33, Red Cell Distribution Width 14.3, Platelet Count 131, Mean Platelet Volume 9.4, Immature Granulocyte % (Auto) 2, Neutrophils (%) (Auto) 69, Lymphocytes (%) (Auto) 17, Monocytes (%) (Auto) 11, Eosinophils (%) (Auto) 1, Basophils (%) (Auto) 1, Neutrophils # (Auto) 5.9, Lymphocytes # (Auto) 1.4, Monocytes # (Auto) 1.0, Eosinophils # (Auto) 0.1, Basophils # (Auto) 0.1, Immature Granulocyte # (Auto) 0.2H, Sodium Level 135, Potassium Level 3.5L, Chloride Level 100, Carbon Dioxide Level 24, Anion Gap 11, Blood Urea Nitrogen 27H, Creatinine 1.19, Estimat Glomerular Filtration Rate 62, BUN/Creatinine Ratio 23, Glucose Level 146H, Calcium Level 9.2, Corrected Calcium 9.7, Total Bilirubin 0.6, Aspartate Amino Transf (AST/SGOT) 20, Alanine Aminotransferase (ALT/SGPT) 20, Alkaline Phosphatase 64, Total Protein 6.3L, Albumin 3.4 12/29/22 05:34: Glucometer 139H 12/29/22 10:48: Glucometer 274H 12/29/22 20:21: Glucometer 177H 12/30/22 04:59: White Blood Count 8.1, Red Blood Count 4.34, Hemoglobin 12.5L, Hematocrit 38L, Mean Corpuscular Volume 87, Mean Corpuscular Hemoglobin 29, Mean Corpuscular Hemoglobin Concent 33, Red Cell Distribution Width 14.4, Platelet Count 146, Mean Platelet Volume 9.1, Immature Granulocyte % (Auto) 2, Neutrophils (%) (Auto) 64, Lymphocytes (%) (Auto) 19, Monocytes (%) (Auto) 12, Eosinophils (%) (Auto) 2, Basophils (%) (Auto) 1, Neutrophils # (Auto) 5.2, Lymphocytes # (Auto) 1.5, Monocytes # (Auto) 1.0, Eosinophils # (Auto) 0.2, Basophils # (Auto) 0.0, Immature Granulocyte # (Auto) 0.1, Sodium Level 133L, Potassium Level 3.6, Chloride Level 97L, Carbon Dioxide Level 25, Anion Gap 11, Blood Urea Nitrogen 25H, Creatinine 1.20, Estimat Glomerular Filtration Rate 62, BUN/Creatinine Ratio 21, Glucose Level 132H, Calcium Level 9.2, Corrected Calcium 9.8, Total Bilirubin 0.6, Aspartate Amino Transf (AST/SGOT) 23, Alanine Aminotransferase (ALT/SGPT) 23, Alkaline Phosphatase 63, Total Protein 6.1L, Albumin 3.2 12/30/22 05:26: Glucometer 139H Microbiology 12/27/22 Blood Culture - Final, Complete Serratia marcescens 12/27/22 Urine Culture - Final, Complete Serratia marcescens Pending Labs Microbiology Date/Time Source Procedure Growth Status 12/27/22 19:50 Peripheral Lt Ac Blood Culture - Final Serratia marcescens Complete 12/27/22 19:35 Peripheral Rt Ac Blood Culture - Preliminary Serratia marcescens See Comments Resulted 12/27/22 19:25 Urine Straight Cath, In/Out Urine Culture - Final Serratia marcescens Complete Laboratory Tests 12/27/22 19:25: Urine Color YELLOW, Urine Clarity CLOUDY, Urine pH 5.5, Urine Specific [place] 1.015, Urine Protein 1+, Urine Glucose (UA) 2+, Urine Ketones NEGATIVE, Urine Nitrite POSITIVE, Urine Bilirubin NEGATIVE, Urine Urobilinogen 0.2, Urine Leukocyte Esterase 2+, Urine RBC (Auto) 3+, Urine RBC RARE, Urine WBC TNTC, Urine Squamous Epithelial Cells NONE, Urine Crystals NONE, Urine Bacteria LARGE, Urine Casts NONE, Urine Mucus NEGATIVE, Urine Culture Indicated YES 12/27/22 19:35: White Blood Count 8.8, Red Blood Count 4.62, Hemoglobin 13.5, Hematocrit 40, Mean Corpuscular Volume 87, Mean Corpuscular Hemoglobin 29, Mean Corpuscular Hemoglobin Concent 34, Red Cell Distribution Width 14.3, Platelet Count 154, Mean Platelet Volume 9.2, Immature Granulocyte % (Auto) 1, Neutrophils (%) (Auto) 77, Lymphocytes (%) (Auto) 9, Monocytes (%) (Auto) 12, Eosinophils (%) (Auto) 1, Basophils (%) (Auto) 1, Neutrophils # (Auto) 6.7, Lymphocytes # (Auto) 0.8, Monocytes # (Auto) 1.1, Eosinophils # (Auto) 0.1, Basophils # (Auto) 0.1, Immature Granulocyte # (Auto) 0.1, Sodium Level 134, Potassium Level 4.2, Chloride Level 98, Carbon Dioxide Level 23, Anion Gap 13, Blood Urea Nitrogen 48, Creatinine 1.99, Estimat Glomerular Filtration Rate 34, BUN/Creatinine Ratio 24, Glucose Level 316, Lactic Acid Level 1.63, Calcium Level 10.3, Corrected Calcium 10.3, Total Bilirubin 0.8, Aspartate Amino Transf (AST/SGOT) 25, Alanine Aminotransferase (ALT/SGPT) 23, Alkaline Phosphatase 73, C-Reactive Protein High Sensitivity 7.84, Total Protein 7.1, Albumin 4.0 12/27/22 22:16: Glucometer 266 12/28/22 05:14: Glucometer 272 12/28/22 05:15: White Blood Count 8.6, Red Blood Count 4.36, Hemoglobin 12.7, Hematocrit 38, Mean Corpuscular Volume 87, Mean Corpuscular Hemoglobin 29, Mean Corpuscular Hemoglobin Concent 34, Red Cell Distribution Width 14.2, Platelet Count 142, Mean Platelet Volume 9.5, Immature Granulocyte % (Auto) 1, Neutrophils (%) (Auto) 78, Lymphocytes (%) (Auto) 8, Monocytes (%) (Auto) 13, Eosinophils (%) (Auto) 0, Basophils (%) (Auto) 1, Neutrophils # (Auto) 6.7, Lymphocytes # (Auto) 0.7, Monocytes # (Auto) 1.1, Eosinophils # (Auto) 0.0, Basophils # (Auto) 0.0, Immature Granulocyte # (Auto) 0.1, Sodium Level 134, Potassium Level 3.8, Chloride Level 100, Carbon Dioxide Level 23, Anion Gap 11, Blood Urea Nitrogen 35, Creatinine 1.48, Estimat Glomerular Filtration Rate 48, BUN/Creatinine Ratio 24, Glucose Level 261, Calcium Level 9.4, Corrected Calcium 9.8, Total Bilirubin 0.8, Aspartate Amino Transf (AST/SGOT) 20, Alanine Aminotransferase (ALT/SGPT) 22, Alkaline Phosphatase 64, Total Protein 6.5, Albumin 3.5 12/28/22 11:12: Glucometer 260 12/28/22 15:29: Glucometer 238 12/28/22 20:14: Glucometer 175 12/29/22 05:10: White Blood Count 8.6, Red Blood Count 4.38, Hemoglobin 12.5, Hematocrit 38, Mean Corpuscular Volume 87, Mean Corpuscular Hemoglobin 29, Mean Corpuscular Hemoglobin Concent 33, Red Cell Distribution Width 14.3, Platelet Count 131, Mean Platelet Volume 9.4, Immature Granulocyte % (Auto) 2, Neutrophils (%) (Auto) 69, Lymphocytes (%) (Auto) 17, Monocytes (%) (Auto) 11, Eosinophils (%) (Auto) 1, Basophils (%) (Auto) 1, Neutrophils # (Auto) 5.9, Lymphocytes # (Auto) 1.4, Monocytes # (Auto) 1.0, Eosinophils # (Auto) 0.1, Basophils # (Auto) 0.1, Immature Granulocyte # (Auto) 0.2, Sodium Level 135, Potassium Level 3.5, Chloride Level 100, Carbon Dioxide Level 24, Anion Gap 11, Blood Urea Nitrogen 27, Creatinine 1.19, Estimat Glomerular Filtration Rate 62, BUN/Creatinine Ratio 23, Glucose Level 146, Calcium Level 9.2, Corrected Calcium 9.7, Total Bilirubin 0.6, Aspartate Amino Transf (AST/SGOT) 20, Alanine Aminotransferase (ALT/SGPT) 20, Alkaline Phosphatase 64, Total Protein 6.3, Albumin 3.4 12/29/22 05:34: Glucometer 139 12/29/22 10:48: Glucometer 274 12/29/22 20:21: Glucometer 177 12/30/22 04:59: White Blood Count 8.1, Red Blood Count 4.34, Hemoglobin 12.5, Hematocrit 38, Mean Corpuscular Volume 87, Mean Corpuscular Hemoglobin 29, Mean Corpuscular Hemoglobin Concent 33, Red Cell Distribution Width 14.4, Platelet Count 146, Mean Platelet Volume 9.1, Immature Granulocyte % (Auto) 2, Neutrophils (%) (Auto) 64, Lymphocytes (%) (Auto) 19, Monocytes (%) (Auto) 12, Eosinophils (%) (Auto) 2, Basophils (%) (Auto) 1, Neutrophils # (Auto) 5.2, Lymphocytes # (Auto) 1.5, Monocytes # (Auto) 1.0, Eosinophils # (Auto) 0.2, Basophils # (Auto) 0.0, Immature Granulocyte # (Auto) 0.1, Sodium Level 133, Potassium Level 3.6, Chloride Level 97, Carbon Dioxide Level 25, Anion Gap 11, Blood Urea Nitrogen 25, Creatinine 1.20, Estimat Glomerular Filtration Rate 62, BUN/Creatinine Ratio 21, Glucose Level 132, Calcium Level 9.2, Corrected Calcium 9.8, Total Bilirubin 0.6, Aspartate Amino Transf (AST/SGOT) 23, Alanine Aminotransferase (ALT/SGPT) 23, Alkaline Phosphatase 63, Total Protein 6.1, Albumin 3.2 12/30/22 05:26: Glucometer 139 Discharge Home Medications: Active Scripts Active Cefdinir 300 Mg Capsule 300 Mg PO BID Reported Indomethacin 25 Mg Capsule 25 Mg PO TID PRN Multivitamin 1 Each Tablet 1 Each PO DAILY Fish Oil 1,200 mg Fish Oil (Fish Oil/Dha/Epa) 1,200 Mg-144 Mg-216 Mg Capsule 1 E ach PO BID Calcium (Calcium Carbonate) 600 Mg Calcium (1500 Mg) Tablet 600 Mg PO DAILY Lisinopril 20 Mg Tablet 20 Mg PO DAILY Allopurinol 100 Mg Tablet 100 Mg PO 1200 Metformin HCl 1,000 Mg Tablet 1,000 Mg PO BID Chlorthalidone 25 Mg Tablet 25 Mg PO DAILY Brimonidine Tartrate 0.2 % Btl 1 Drop OS BID Mounjaro (Tirzepatide) 7.5 Mg/0.5 Ml Pen.injctr 7.5 Mg SQ FRI Finasteride 5 Mg Tablet 5 Mg PO 1200 Atorvastatin Calcium 10 Mg Tablet 10 Mg PO HS Testosterone Cypionate 200 Mg/Ml Vial 200 Mg IM MONTHLY 7 Days Novolog Flexpen (Insulin Aspart) 100 Unit/Ml (3 Ml) Solution 7 Units SQ BIDAC Metoprolol Tartrate 50 Mg Tablet 50 Mg PO BID Levemir Flextouch (Insulin Detemir) 100 Unit/Ml (3 Ml) Insuln.pen 23 Unit SQ BID Acid [employer] (FAMOTIDINE) (Famotidine) 20 Mg Tablet 20 Mg PO HS Aspirin 81 Mg Tab.chew 81 Mg PO HS Instructions to patient/family Please see electronic discharge instructions given to patient. CLIVE MUÑOZ DO Dec 30, 2022 11:55
--- NOTE | 2022-12-30 13:06 | Progress Note - Cardiology ---
Cardiology SOAP Progress Note Subjective: No cp or palp or syncope or shortness of breath No n/v/d Has felt better with urinary catheter and has not had urinary symptoms No focal weakness Generally feels well and wishes to go home Objective: I&O/Vital Signs 12/30/22 12/30/22 12/30/22 12/30/22 03:41 07:00 07:16 08:30 Temp 36.6 37.3 Pulse 67 62 66 Resp 16 18 B/P (MAP) 133/75 (94) 150/83 (105) Pulse Ox 96 95 O2 Delivery NIV CPAP Room Air Room Air 12/30/22 11:05 Temp 37.2 Pulse 62 Resp 18 B/P (MAP) 131/72 (91) Pulse Ox 95 O2 Delivery Room Air 12/30/22 00:00 Intake Total 1440 ml Output Total 2625 ml Balance -1185 ml Weight (Pounds): 295 Weight (Ounces): 0.0 Weight (Calculated Kilograms): 133.714362 Constitutional: AAO x 3, well-developed, well-nourished Respiratory: No accessory muscle use; chest expansion is symmetric, chest is bilaterally symmetric, other (fair to good, bilateral air entry) Cardiovascular: regular rate-rhythm, S1 and S2, systolic murmur (2-3/6 MSM) Gastrointestional: No tender; soft; No guarding, No rebound; audible bowel sounds Extremities: No clubbing, No cyanosis, No significant edema Neurologic/Psychiatric: oriented x 3, other (moves all limbs ) Skin: No rash on exposed areas, No ulcerations on exposed areas Results/Procedures: Labs Laboratory Tests 12/29/22 20:21: Glucometer 177H 12/30/22 04:59: White Blood Count 8.1, Red Blood Count 4.34, Hemoglobin 12.5L, Hematocrit 38L, Mean Corpuscular Volume 87, Mean Corpuscular Hemoglobin 29, Mean Corpuscular Hemoglobin Concent 33, Red Cell Distribution Width 14.4, Platelet Count 146, Mean Platelet Volume 9.1, Immature Granulocyte % (Auto) 2, Neutrophils (%) (Auto) 64, Lymphocytes (%) (Auto) 19, Monocytes (%) (Auto) 12, Eosinophils (%) (Auto) 2, Basophils (%) (Auto) 1, Neutrophils # (Auto) 5.2, Lymphocytes # (Auto) 1.5, Monocytes # (Auto) 1.0, Eosinophils # (Auto) 0.2, Basophils # (Auto) 0.0, Immature Granulocyte # (Auto) 0.1, Sodium Level 133L, Potassium Level 3.6, Chloride Level 97L, Carbon Dioxide Level 25, Anion Gap 11, Blood Urea Nitrogen 25H, Creatinine 1.20, Estimat Glomerular Filtration Rate 62, BUN/Creatinine Ratio 21, Glucose Level 132H, Calcium Level 9.2, Corrected Calcium 9.8, Total Bilirubin 0.6, Aspartate Amino Transf (AST/SGOT) 23, Alanine Aminotransferase (ALT/SGPT) 23, Alkaline Phosphatase 63, Total Protein 6.1L, Albumin 3.2 12/30/22 05:26: Glucometer 139H Microbiology 12/27/22 Blood Culture - Final, Complete Serratia marcescens 12/27/22 Urine Culture - Final, Complete Serratia marcescens Laboratory Tests 12/29/22 05:10 12/30/22 04:59 A/P: Assessment: Urinary obstruction, UTI, and sepsis (serratia bacteremia) leading to this admission - managed by Dr Taylor SVT, asymptomatic, approx 20 beat run at approx 5 pm on 12/28/22 H/o sinus arrhythmia and PVCs and PACs Chronic 1st deg AV block and right bundle branch block Mild aortic stenosis - Echocardiogram done in March 2021 showing normal LV size with EF 55 to 65%. Mildly dilated left atrium, very mild aortic valve stenosis with peak gradient 2 3 mmHg, mean gradient 12 mmHg, valve area 1.5 cm, PA pressure 30 to 35 mmHg. - Echo on 12/30/22: LVEF 60-65%, grade 1 diastolic dysfunction, mild with valve area approx 1.8 sq cm, mild AI, PASP 20-25 mmHg Hypertension Hyperlipidemia - treated with statin Mild bilateral carotid stenosis on ultrasound was done in January 2022. Diabetes mellitus II, insulin requiring - managed by Dr Taylor History of bilateral knee surgeries, appendectomy H/o prostate enlargement Obstructive sleep apnea, diagnosed October 2018 - treated with CPAP. Multiple risk factors for underlying CAD - MPI in Aug 2022 (Dr Rajan): Baseline right bundle branch block with nondiagnostic EKG changes with exercise return to baseline during recovery. No significant ischemia or infarction noted on SPECT images. Normal left ventricular size, ejection fraction 65% Plan: * Cardiac status clinically treatment * Continue with beta-loly * Ok to d/c from cardiac standpoint. F/u with Dr Rajan next week * I spoke with his attending Dr Taylor today and discussed our recs MARIO DEVINE MD [facility] Dec 30, 2022 13:06
== END 2022-12-30 13:50 | disposition home or self-care (01) | DRG 872 ==
LOC: EDUNIT# 19:09 → ER 19:10 → 4TH 21:20
PROVIDERS: ADMIT Internal Medicine; ATTEND Internal Medicine
DX: A41.53 Sepsis due to Serratia (principal); N39.0 Urinary tract infection, site not specified; N17.9 Acute kidney failure, unspecified; I47.1 Supraventricular tachycardia; N13.8 Other obstructive and reflux uropathy; I45.4 Nonspecific intraventricular block; Z96.653 Presence of artificial knee joint, bilateral; Z96.641 Presence of right artificial hip joint; I10 Essential (primary) hypertension; M10.9 Gout, unspecified; K21.9 Gastro-esophageal reflux disease without esophagitis; G47.33 Obstructive sleep apnea (adult) (pediatric); E78.5 Hyperlipidemia, unspecified; E11.9 Type 2 diabetes mellitus without complications; I35.0 Nonrheumatic aortic (valve) stenosis; N40.1 Benign prostatic hyperplasia with lower urinary tract symptoms; I44.0 Atrioventricular block, first degree; Z90.49 Acquired absence of other specified parts of digestive tract; Z79.899 Other long term (current) drug therapy; Z79.4 Long term (current) use of insulin; Z98.52 Vasectomy status
CPT/HCPCS: 36415; 51702; 80053; 81000; 82947; 83605; 85025; 86141; 87040; 87077; 87088; 87186; 93005; 93306; 94760